=== PATIENT | female | born 1990 | race Caucasian/White ===

== ENCOUNTER 2021-07-30 22:23 | Emergency (ER) | payer OTHER, SELFPAY ==
[2021-07-30 22:27] VITALS: BP 129/88; PULSE 128; RESP 20; TEMP 36.9; O2SAT 97; BMI 33.3
[2021-07-30 22:52] LABS: Basophils Percent Auto 0.4 % (0-2); Eosinophils Absolute Auto 0.2 X10*3/uL (0.0-0.4); Eosinophils Percent Auto 2.6 % (0-4); Hematocrit 42.4 % (37.0-47.0); Hemoglobin 14.4 g/dl (12.0-16.0); Imm Gran Abs Auto 0.01 X10*3/uL (0.00-0.03); Imm Gran Pct Auto 0.1 % (0.0-0.4); Lymphocytes Absolute Auto 1.8 X10*3/uL (1.2-4.9); Lymphocytes Percent Auto 24.7 % (20-40); MANUAL DIFF FLAG NO; Mean Corpuscular Hemoglobin 30.5 pg (27.0-33.0); Mean Corpuscular Volume 89.8 fL (80.0-98.0); Monocytes Absolute Auto 0.7 X10*3/uL (0.1-1.2); Monocytes Percent Auto 9.5 % (2-11); Neutrophils Absolute Auto 4.5 x10*3/uL (2.0-8.3); Neutrophils Percent Auto 62.7 % (45-73); Platelet Count 314 X10*3/uL (160-400); Red Blood Count 4.72 X10*6/uL (4.20-5.50); Red Cell Distribution Width 12.9 % (11.0-16.0); White Blood Count 7.2 X10*3/uL (4.8-10.8)
[2021-07-30 22:53] LABS: Appearance Urine CLEAR; Color Urine YELLOW; Glucose Urine UA NEG (NEG); Leukocyte Esterase Urine NEG (NEG); Nitrite Urine NEG (NEG); Specific Gravity - Urine >= 1.030 (1.005-1.025); UACC Culture Trigger NO; Urine Blood 2+ (NEG); Urine Ketones NEG (NEG); Urine Protein TRACE MG/DL (NEG-TRACE)
[2021-07-30 22:56] LABS: UPreg QC Valid YES; Urine Pregnancy NEGATIVE (NEGATIVE)
[2021-07-30 23:04] LABS: Mucus Urine 3+ /LPF; RBC Urine 0-2 /HPF (0); Squamous Epithelial Cell Urine 2+ /LPF; WBC Urine 0-2 /HPF (0-4)
[2021-07-30 23:05] LABS: Anion Gap 12 (12-20); Blood Urea Nitrogen 15 mg/dL (9-16); Calcium 9.1 mg/dL (8.4-10.2); Carbon Dioxide 23 mmol/L (22-29); Chloride 108 mmol/L (96-108); Creatinine Clr Calc Pharmacy 107.6; Estimated Glomerular Filt Rate > 60; Glucose Random 116 mg/dL (60-115); Potassium 3.7 mmol/L (3.3-5.1); Sodium 139 mmol/L (135-145)
--- NOTE | 2021-07-30 23:15 | ED.FEMALEGU ---
HPI - Female Genitourinary General Chief complaint: Urogenital-Female Stated complaint: rash perineal area Time Seen by Provider: 07/30/21 23:15 Source: patient Mode of arrival: ambulatory Limitations: no limitations History of Present Illness HPI Narrative: Patient is a 30 year old female presenting to the emergency department today with a vaginal rash. Patient states that this rash came on all of a sudden and began to feel like it was burning. Patient denies any dizziness, lightheadedness, abdominal pain, nausea, vomiting, fever, chills, blurry vision, double vision, loss of vision, chest pain, difficulty breathing, shortness of breath, back pain, night sweats, increased urinary frequency, increased urinary urgency, blood in her urine or stool, syncope or a near syncopal episode, recent trauma or falls, bowel incontinence, bladder incontinence, bowel retention, bladder retention, or any other complaints at this time. MD elicited complaint: dysuria, possible STD and genital rash Related Data Allergies Allergy/AdvReac Type Severity Reaction Status Date / Time Seasonal Allergies Allergy Runny Nose Verified 07/30/21 22:35 codeine AdvReac Hallucinati Verified 07/30/21 22:35 ons Review of Systems Constitutional: Constitutional: Reports no additional constitutional complaints, Denies chills, Denies fever(s) and Denies night sweats Eyes: Eyes: Reports no additional eye complaints, Denies blurry vision, Denies change in vision, Denies diplopia, Denies eye discharge, Denies loss of vision and Denies eye pain ENT: Denies dizziness Cardiovascular: Cardiovascular: Reports no additional cardiovascular complaints, Denies chest pain, Denies lightheadedness, Denies Loss of Consciousness and Denies dyspnea Respiratory: Respiratory: Reports no additional respiratory complaints and Denies dyspnea Gastrointestinal: Gastrointestinal: Reports no additional gastrointestinal complaints, Denies abdominal pain, Denies melena, Denies hematochezia, Denies change in bowel habits and Denies change in stool character Genitourinary: Genitourinary: Denies hematuria, Denies urinary frequency, Reports genital lesions, Reports dysuria, Denies urinary incontinence, Denies urinary hesitancy and Denies urinary urgency Musculoskeletal: Musculoskeletal: Reports no additional musculoskeletal complaints, Denies numbness and Denies tingling Neurologic: Denies dizziness, Denies loss of vision, Denies numbness and Denies tingling Psychiatric: Psychiatric: Reports no additional psychiatric complaints Endocrine: Endocrine: Reports no additional endocrine complaints Hematologic/Lymphatic: Hematologic/Lymphatic: Reports no additional hematologic/lymphatic complaints Allergic/Immunologic: Allergic/Immunologic: Reports no additional allergic/immunologic complaints PMF Past Medical History Attestation statement: The following information was validated with the patient. Source: old records reviewed Medical History Asthma Surgical History Previous back surgery Social History Social History Advance Directives: No Patient : No Physical Exam Vital Signs: Vital Signs: Last Vital Signs Temp 98.5 F 07/30/21 22:27 Pulse 128 H 07/30/21 22:27 Resp 20 07/30/21 22:27 BP 129/88 07/30/21 22:27 Pulse Ox 97 07/30/21 22:27 BMI result Body Mass Index 33.3 Const: General: cooperative, no acute distress, alert and awake Nutritional Appearance: well nourished Orientation/consciousness: patient oriented x3 Limitations: no limitations HENMT: Head: Yes normal to inspection and Yes atraumatic Ears: hearing grossly normal bilaterally and external ears normal General nose exam: Normal external nose present, no nasal discharge noted and no epistaxis Face and sinus: Yes normal facial exam, No abrasion and No laceration Mouth: Normal oral and palatal mucosa present, no drooling and no muffled voice Eyes: General: appearance normal, both eyes and all related structures Periorbital: periorbital findings normal Eyelids: Yes eyelids normal Conjunctivae: conjunctivae normal Pupils: Equal, round and reactive pupils present EOM: EOMs intact bilaterally Neck: Neck: Yes normal visual inspection, Yes full ROM and Yes no lymphadenopathy Chest: Chest palpation & inspection: normal inspection of the chest Resp: Effort & Inspection: normal respiratory effort and able to speak in complete sentences GI: Inspection: Yes normal to inspection Skin: Lesions: lesion noted (extensively throughout the external vagina) Neuro: General: patient oriented x3 and moves all extremities Cranial nerves: Yes Equal, round and reactive pupils present Cognition (Neuro): normal cognition Motor exam (neuro): 5/5 motor strength present throughout Sensory Exam: Normal double simultaneous stimulation for sensation Coordination: [id number] test normal Extrem: General: Yes normal to inspection, Yes full ROM and Yes capillary refill normal Psych: Appearance: grossly normal Mental Status: mental status grossly normal Affect: normal affect Attitude: cooperative Thought process: Normal thought process present Thought content: Normal thought content present Insight: Good insight present (Psych) MDM - Female Genitourinary MDM Narrative Medical decision making narrative: Patient is a 30 year old female presenting to the emergency department today with an extensive external vaginal rash. Patient's physical exam showed multiple lesions to the external vagina consistent with genital herpes. Patient's blood work was unremarkable. Patient's urine showed no acute process. I explained my physical exam findings as well as all test results to the patient. I answered all questions asked by the patient. I stressed the importance of the patient taking her medication as prescribed. I stressed the importance of the patient following up with her primary care provider. I stressed the importance of the patient returning to the emergency department immediately if her symptoms were to worsen or if she were to develop any dizziness, shortness of breath, difficulty breathing, chest pain, blurry vision, loss of vision, nausea, vomiting, abdominal pain, fever, chills, back pain, or any other complaints. Patient verbalized agreement and understanding with this treatment plan and discharge. Differential Diagnosis Differential diagnosis: Likely urinary tract infection and cystitis (vaginal herpes) Medical Records Attestation: I reviewed the patient's medical records. Lab Data Attestation: I reviewed the patient's lab results. Result diagrams: 07/30/21 22:46 07/30/21 22:46 Labs: Lab Results 07/30/21 07/30/21 07/30/21 Range/Units 22:46 22:46 22:46 WBC 7.2 (4.8-10.8) X10*3/uL RBC 4.72 (4.20-5.50) X10*6/uL Hgb 14.4 (12.0-16.0) g/dl Hct 42.4 (37.0-47.0) % MCV 89.8 (80.0-98.0) fL MCH 30.5 (27.0-33.0) pg MCHC 34.0 (31.0-35.0) g/dl RDW 12.9 (11.0-16.0) % Plt Count 314 (160-400) X10*3/uL MPV 9.0 L (9.4-12.3) fL Immature Gran % (Auto) 0.1 (0.0-0.4) % Neut % (Auto) 62.7 (45-73) % Lymph % (Auto) 24.7 (20-40) % [place] % (Auto) 9.5 (2-11) % Eos % (Auto) 2.6 (0-4) % Baso % (Auto) 0.4 (0-2) % Lymph # (Auto) 1.8 (1.2-4.9) X10*3/uL [place] # (Auto) 0.7 (0.1-1.2) X10*3/uL Eos # (Auto) 0.2 (0.0-0.4) X10*3/uL Baso # (Auto) 0.0 (0.0-0.2) X10*3/uL Abs Immat Gran (auto) 0.01 (0.00-0.03) X10*3/uL Absolute Neuts (auto) 4.5 (2.0-8.3) x10*3/uL Absolute Nucleated RBC 0.000 (0.0-0.012) X10*3/uL Nucleated RBC % (auto) 0.0 (0.0-0.2) /100WBC Sodium 139 (135-145) mmol/L Potassium 3.7 (3.3-5.1) mmol/L Chloride 108 (96-108) mmol/L Carbon Dioxide 23 (22-29) mmol/L Anion Gap 12 (12-20) BUN 15 (9-16) mg/dL Creatinine 0.85 (0.5-1.4) mg/dL Estim Creat Clear Calc 107.6 Estimated GFR > 60 Random Glucose 116 H (60-115) mg/dL Calcium 9.1 (8.4-10.2) mg/dL Urine Color YELLOW Urine Appearance CLEAR Urine pH 6.0 (5.0-8.0) Ur Specific [place] >= 1.030 H (1.005-1.025) Urine Protein TRACE (NEG-TRACE) MG/DL Urine Glucose (UA) NEG (NEG) MG/DL Urine Ketones NEG (NEG) MG/DL Urine Blood 2+ H (NEG) Urine Nitrite NEG (NEG) Ur Leukocyte Esterase NEG (NEG) Urine RBC 0-2 (0) /HPF Urine WBC 0-2 (0-4) /HPF Ur Squamous Epith Cells 2+ /LPF Urine Bacteria NONE /LPF Urine Mucus 3+ /LPF Urine Test (NEGATIVE) 07/30/21 Range/Units 22:46 WBC (4.8-10.8) X10*3/uL RBC (4.20-5.50) X10*6/uL Hgb (12.0-16.0) g/dl Hct (37.0-47.0) % MCV (80.0-98.0) fL MCH (27.0-33.0) pg MCHC (31.0-35.0) g/dl RDW (11.0-16.0) % Plt Count (160-400) X10*3/uL MPV (9.4-12.3) fL Immature Gran % (Auto) (0.0-0.4) % Neut % (Auto) (45-73) % Lymph % (Auto) (20-40) % [place] % (Auto) (2-11) % Eos % (Auto) (0-4) % Baso % (Auto) (0-2) % Lymph # (Auto) (1.2-4.9) X10*3/uL [place] # (Auto) (0.1-1.2) X10*3/uL Eos # (Auto) (0.0-0.4) X10*3/uL Baso # (Auto) (0.0-0.2) X10*3/uL Abs Immat Gran (auto) (0.00-0.03) X10*3/uL Absolute Neuts (auto) (2.0-8.3) x10*3/uL Absolute Nucleated RBC (0.0-0.012) X10*3/uL Nucleated RBC % (auto) (0.0-0.2) /100WBC Sodium (135-145) mmol/L Potassium (3.3-5.1) mmol/L Chloride (96-108) mmol/L Carbon Dioxide (22-29) mmol/L Anion Gap (12-20) BUN (9-16) mg/dL Creatinine (0.5-1.4) mg/dL Estim Creat Clear Calc Estimated GFR Random Glucose (60-115) mg/dL Calcium (8.4-10.2) mg/dL Urine Color Urine Appearance Urine pH (5.0-8.0) Ur Specific [place] (1.005-1.025) Urine Protein (NEG-TRACE) MG/DL Urine Glucose (UA) (NEG) MG/DL Urine Ketones (NEG) MG/DL Urine Blood (NEG) Urine Nitrite (NEG) Ur Leukocyte Esterase (NEG) Urine RBC (0) /HPF Urine WBC (0-4) /HPF Ur Squamous Epith Cells /LPF Urine Bacteria /LPF Urine Mucus /LPF Urine Test NEGATIVE (NEGATIVE) Discharge Plan Discharge Clinical Impression: Herpetic vesicle in vagina Patient Disposition: Home, Self-Care Instructions: Genital Herpes Simplex (ED) Additional Instructions: Follow up with your primary care provider. Return to the emergency department immediately if your symptoms worsen or if you develop any dizziness, shortness of breath, difficulty breathing, chest pain, blurry vision, loss of vision, nausea, vomiting, abdominal pain, fever, chills, back pain, or any other complaints. Referrals: Girish Lomax MD [Physician] - 2 days Stand Alone Forms: Work/School Release Print Language: [place]ib[place]ian
== END 2021-07-31 00:50 | disposition home or self-care (01) ==
PROVIDERS: Emergency Provider Internal Medicine
DX: L29.0 Pruritus ani (principal); A60.04 Herpesviral vulvovaginitis; Z79.899 Other long term (current) drug therapy
CPT/HCPCS: 36415; 80048; 81001; 81025; 85025; 99283; 99284

== ENCOUNTER 2022-12-01 16:48 | Emergency (ER) | payer OTHER, SELFPAY ==
[2022-12-01 16:51] VITALS: BP 149/87; PULSE 134; RESP 18; TEMP 36.8; O2SAT 97; BMI 38.6
--- NOTE | 2022-12-01 16:53 | ED.ASTHMA ---
HPI - Asthma General Chief Complaint: Asthma Stated Complaint: sob,asthma,chest congestion Time Seen by Provider: 12/01/22 22:29 Source: patient Mode of arrival: ambulatory Limitations: no limitations History of Present Illness HPI Narrative: Patient with history of asthma does not get asthma attack very often last attack was in 05/22 ,. Patient co-worker was sick 3- 4 days ago with same symptoms. patient complaining of body aches, low-grade fever body ache malaise running nose cough mostly dry and wheeze Related Data Previous Rx's Medication Instructions Recorded albuterol sulfate 90 mcg/actuation 2 puff inhalation Q4-6H PRN 12/02/22 aerosol inhaler (ProAir HFA) shortness of breath or wheezing #8.5 grams benzonatate 200 mg capsule 200 mg PO TID PRN cough #30 caps 12/02/22 cefuroxime axetil 500 mg tablet 500 mg PO BID #20 tabs 12/02/22 prednisone 20 mg tablet 40 mg PO DAILY #10 tabs 12/02/22 Allergies Allergy/AdvReac Type Severity Reaction Status Date / Time Seasonal Allergies Allergy Runny Nose Verified 12/02/22 02:23 codeine AdvReac Hallucinati Verified 12/02/22 02:23 ons Review of Systems Review of Systems: Yes all other systems are reviewed and are negative PMFSH Past Medical History Medical History Asthma Surgical History Previous back surgery Social History Social History Use of substances other than those prescribed or required for medical reasons: Yes Advance Directives: No Advance Directives Information Provided: Yes Patient : No Physical Exam Vital Signs: Vital Signs: Last Vital Signs Temp 99.1 F 12/02/22 01:37 Pulse 127 H 12/02/22 00:00 Resp 21 H 12/02/22 00:00 BP 145/80 H 12/02/22 00:00 Pulse Ox 96 12/02/22 00:00 O2 Del Method Room Air 12/02/22 00:00 BMI result Body Mass Index 38.6 Appearance: Alert. Oriented X3. No acute distress. ENT: Pharynx normal. Oral Mucosa moist clear I noted Neck: Normal inspection. Neck supple. CVS: Normal heart rate and rhythm. Pulses normal. Respiratory: No respiratory distress. Equal air entry bilateral, bilateral wheezing Abdomen: Soft and nontender. Bowel sounds are present, no mass palpable, no CVA tenderness Skin: Skin warm and dry. Normal skin color. Normal skin turgor. Extremities: No lower extremity edema. No calf tenderness Neuro: Oriented X 3. Course Course Course Narrative: RME: 32 yold female presents to the ED for asthma exacerbation. patient states no relief with albuterol inhaler. labs, chest xray, and ekg ordered Medications Administered Discontinued Medications Generic Name Dose Route Start Last Admin Trade Name Freq PRN Reason Stop Dose Admin Acetaminophen 650 mg 12/02/22 00:12 12/02/22 00:24 Acetaminophen 325 Mg Tablet PO 12/02/22 00:13 650 mg ONCE ONE Administration Cefuroxime Axetil 500 mg 12/02/22 00:45 12/02/22 01:36 Cefuroxime Axetil 500 Mg Tablet PO 12/02/22 00:46 500 mg ONCE ONE Administration Albuterol Sulfate 5 mg/ 0 mg 12/01/22 22:38 12/02/22 02:16 Albuterol/Ipratropium 3 ml INHALE 12/01/22 22:39 Not Given ONCE ONE Dexamethasone 10 mg 12/01/22 22:38 12/01/22 23:37 Dexamethasone 2 Mg Tablet PO 12/01/22 22:39 10 mg ONCE ONE Administration Guaifenesin/Dextromethorphan 10 ml 12/02/22 00:13 12/02/22 00:24 Guaifenesin Dm 200/20/10 Ml 10 Ml Syrup PO 12/02/22 00:14 10 ml ONCE ONE Administration Medical Decision Making Medical Decision Making MDM Narrative: Patient with asthmatic bronchitis COVID/influenza/rapid strep negative chest x-ray also negative but patient has fever and increased cough will discharge patient home on Ceftin and prednisone Lab Data [facility] Lab Attestation statement: I reviewed the patient's lab results. 12/01/22 17:18 12/01/22 17:18 Labs: Lab Results 12/01/22 12/01/22 12/01/22 Range/Units 17:18 17:18 17:18 WBC 8.1 (4.8-10.8) X10*3/uL RBC 4.53 (4.20-5.50) X10*6/uL Hgb 13.8 (12.0-16.0) g/dl Hct 40.6 (37.0-47.0) % MCV 89.6 (80.0-98.0) fL MCH 30.5 (27.0-33.0) pg MCHC 34.0 (31.0-35.0) g/dl RDW 13.2 (11.0-16.0) % Plt Count 355 (160-400) X10*3/uL MPV 9.5 (9.4-12.3) fL Immature Gran % (Auto) 0.4 (0.0-0.4) % Neut % (Auto) 68.4 (45-73) % Lymph % (Auto) 18.0 L (20-40) % [place] % (Auto) 8.9 (2-11) % Eos % (Auto) 3.7 (0-4) % Baso % (Auto) 0.6 (0-2) % Lymph # (Auto) 1.5 (1.2-4.9) X10*3/uL [place] # (Auto) 0.7 (0.1-1.2) X10*3/uL Eos # (Auto) 0.3 (0.0-0.4) X10*3/uL Baso # (Auto) 0.1 (0.0-0.2) X10*3/uL Abs Immat Gran (auto) 0.03 (0.00-0.03) X10*3/uL Absolute Neuts (auto) 5.5 (2.0-8.3) x10*3/uL Absolute Nucleated RBC 0.000 (0.0-0.012) X10*3/uL Nucleated RBC % (auto) 0.0 (0.0-0.2) /100WBC Sodium 140 (135-145) mmol/L Potassium 3.2 L (3.3-5.1) mmol/L Chloride 108 (96-108) mmol/L Carbon Dioxide 22 (22-29) mmol/L Anion Gap 13 (12-20) BUN 8 L (9-16) mg/dL Creatinine 0.79 (0.5-1.4) mg/dL Estim Creat Clear Calc 118.8 Estimated GFR > 60 Random Glucose 102 (60-115) mg/dL Calcium 9.5 (8.4-10.2) mg/dL Total Bilirubin 0.3 (0.0-1.0) mg/dL AST 14 (5-31) U/L ALT 15 (0-31) U/L Alkaline Phosphatase 75 (39-117) U/L Troponin I High Sens < 2.7 (<3.5-17.0) ng/L B-Natriuretic Peptide (<100) pg/mL Total Protein 7.3 (6.5-8.0) g/dL Albumin 4.2 (3.5-5.0) g/dL COVID-19 (ANDI) (Negative) COVID-19 Clin Com Influenza Type A (MICHELLE) (Negative) Influenza Type B (MICHELLE) (Negative) Influenza A & B Note S. pyogenes GrpA MICHELLE (Negative) 12/01/22 12/01/22 12/02/22 Range/Units 17:18 23:04 00:16 WBC (4.8-10.8) X10*3/uL RBC (4.20-5.50) X10*6/uL Hgb (12.0-16.0) g/dl Hct (37.0-47.0) % MCV (80.0-98.0) fL MCH (27.0-33.0) pg MCHC (31.0-35.0) g/dl RDW (11.0-16.0) % Plt Count (160-400) X10*3/uL MPV (9.4-12.3) fL Immature Gran % (Auto) (0.0-0.4) % Neut % (Auto) (45-73) % Lymph % (Auto) (20-40) % [place] % (Auto) (2-11) % Eos % (Auto) (0-4) % Baso % (Auto) (0-2) % Lymph # (Auto) (1.2-4.9) X10*3/uL [place] # (Auto) (0.1-1.2) X10*3/uL Eos # (Auto) (0.0-0.4) X10*3/uL Baso # (Auto) (0.0-0.2) X10*3/uL Abs Immat Gran (auto) (0.00-0.03) X10*3/uL Absolute Neuts (auto) (2.0-8.3) x10*3/uL Absolute Nucleated RBC (0.0-0.012) X10*3/uL Nucleated RBC % (auto) (0.0-0.2) /100WBC Sodium (135-145) mmol/L Potassium (3.3-5.1) mmol/L Chloride (96-108) mmol/L Carbon Dioxide (22-29) mmol/L Anion Gap (12-20) BUN (9-16) mg/dL Creatinine (0.5-1.4) mg/dL Estim Creat Clear Calc Estimated GFR Random Glucose (60-115) mg/dL Calcium (8.4-10.2) mg/dL Total Bilirubin (0.0-1.0) mg/dL AST (5-31) U/L ALT (0-31) U/L Alkaline Phosphatase (39-117) U/L Troponin I High Sens (<3.5-17.0) ng/L B-Natriuretic Peptide 12 (<100) pg/mL Total Protein (6.5-8.0) g/dL Albumin (3.5-5.0) g/dL COVID-19 (ANDI) Negative (Negative) COVID-19 Clin Com See Note Influenza Type A (MICHELLE) Negative (Negative) Influenza Type B (MICHELLE) Negative (Negative) Influenza A & B Note See Note S. pyogenes GrpA MICHELLE (Negative) 12/02/22 Range/Units 00:16 WBC (4.8-10.8) X10*3/uL RBC (4.20-5.50) X10*6/uL Hgb (12.0-16.0) g/dl Hct (37.0-47.0) % MCV (80.0-98.0) fL MCH (27.0-33.0) pg MCHC (31.0-35.0) g/dl RDW (11.0-16.0) % Plt Count (160-400) X10*3/uL MPV (9.4-12.3) fL Immature Gran % (Auto) (0.0-0.4) % Neut % (Auto) (45-73) % Lymph % (Auto) (20-40) % [place] % (Auto) (2-11) % Eos % (Auto) (0-4) % Baso % (Auto) (0-2) % Lymph # (Auto) (1.2-4.9) X10*3/uL [place] # (Auto) (0.1-1.2) X10*3/uL Eos # (Auto) (0.0-0.4) X10*3/uL Baso # (Auto) (0.0-0.2) X10*3/uL Abs Immat Gran (auto) (0.00-0.03) X10*3/uL Absolute Neuts (auto) (2.0-8.3) x10*3/uL Absolute Nucleated RBC (0.0-0.012) X10*3/uL Nucleated RBC % (auto) (0.0-0.2) /100WBC Sodium (135-145) mmol/L Potassium (3.3-5.1) mmol/L Chloride (96-108) mmol/L Carbon Dioxide (22-29) mmol/L Anion Gap (12-20) BUN (9-16) mg/dL Creatinine (0.5-1.4) mg/dL Estim Creat Clear Calc Estimated GFR Random Glucose (60-115) mg/dL Calcium (8.4-10.2) mg/dL Total Bilirubin (0.0-1.0) mg/dL AST (5-31) U/L ALT (0-31) U/L Alkaline Phosphatase (39-117) U/L Troponin I High Sens (<3.5-17.0) ng/L B-Natriuretic Peptide (<100) pg/mL Total Protein (6.5-8.0) g/dL Albumin (3.5-5.0) g/dL COVID-19 (ANDI) (Negative) COVID-19 Clin Com Influenza Type A (MICHELLE) (Negative) Influenza Type B (MICHELLE) (Negative) Influenza A & B Note S. pyogenes GrpA MICHELLE Negative (Negative) Discharge Plan Discharge Clinical Impression: Asthma with acute exacerbation Patient Disposition: Home, Self-Care Instructions: Asthma (ED) Additional Instructions: Continues inhaler as prescribed Antibiotics and prednisone as prescribed Follow with PCP Prescriptions: New prednisone 20 mg tablet 40 mg PO DAILY Qty: 10 0RF albuterol sulfate [ProAir HFA] 90 mcg/actuation HFA aerosol inhaler 2 puff inhalation Q4-6H PRN (Reason: shortness of breath or wheezing) Qty: 8.5 0RF benzonatate 200 mg capsule 200 mg PO TID PRN (Reason: cough) Qty: 30 0RF cefuroxime axetil 500 mg tablet 500 mg PO BID Qty: 20 0RF Stand Alone Forms: Work/School Release Interventions: ED Discharge Assessment Last Done: 12/02/22 01:53 Discharge Date/Time: 12/02/22 01:53
[2022-12-01 22:00] VITALS: PULSE 130; RESP 23; TEMP 37.3; O2SAT 96
--- NOTE | 2022-12-01 22:14 | PC.NURSE ---
pt states she used albuterol inhaler over 30x, provider aware pt c/o foster due to coughing excessively pt tearful aox4
[2022-12-01 22:54] VITALS: PULSE 106; RESP 18; O2SAT 97
[2022-12-02] VITALS: BP 145/80; PULSE 127; RESP 21; TEMP 37.1; O2SAT 96
--- NOTE | 2022-12-02 01:01 | PC.NURSE ---
foster resolved denies cp no respiratory distress aox4
[2022-12-02 01:37] VITALS: TEMP 37.3
--- NOTE | 2022-12-02 01:54 | PC.NURSE ---
Discharge instructions given and explained to pt No apparent distress No respiratory distress Able to speak in full sentences Ambulates safely/independently All of pt's questions answered AOx4
== END 2022-12-02 01:53 | disposition home or self-care (01) ==
PROVIDERS: Emergency Provider Internal Medicine
DX: J45.901 Unspecified asthma with (acute) exacerbation (principal); R06.02 Shortness of breath; Z20.822 Contact with and (suspected) exposure to COVID-19
CPT/HCPCS: 36415; 71046; 80053; 83880; 84484; 85025; 87502; 87635; 87651; 93005; 94640; 99284; 99285; J8540

== ENCOUNTER → 2024-05-01 04:47 | Outpatient (BNV) | payer BC, SELFPAY | PROVIDERS: Emergency Provider Emergency Medicine; Visit Provider Internal Medicine | DX: R07.9 Chest pain, unspecified (principal) | CPT/HCPCS: 93010 ==

== ENCOUNTER 2024-05-01 04:55 | Emergency (ER) | payer BC, SELFPAY ==
--- NOTE | 2024-05-01 | ECG_ITS ---
Test Reason : CP Blood Pressure : / mmHG Vent. Rate : 078 BPM Atrial Rate : 078 BPM P-R Int : 124 ms QRS Dur : 078 ms QT Int : 386 ms P-R-T Axes : 043 067 027 degrees QTc Int : 440 ms Normal sinus rhythm Normal ECG No significant changes when compared with the previous EKG of 01 december 2022 Referred By: Emma Mason Electronically Signed By:ANDRES SUAZO
--- NOTE | ~2024-05-01 | US_ITS ---
EXAMINATION: US ABDOMEN LIMITED CLINICAL INFORMATION: Right upper quadrant pain. COMPARISON: None available. TECHNIQUE: Real-time imaging of the right upper quadrant abdominal viscera. FINDINGS: PANCREAS: Visualized portions are unremarkable. LIVER: The liver is normal in size. The liver contour is normal. Mildly increased hepatic parenchymal echogenicity. No focal hepatic lesion. There is no intrahepatic biliary duct dilatation seen. GALLBLADDER: Gallstones measuring up to 1.4 cm. No gallbladder wall thickening or pericholecystic free fluid to suggest acute cholecystitis. Negative sonographic Benites sign. COMMON BILE DUCT: Normal in caliber measuring 0.3 cm in diameter. RIGHT KIDNEY: No hydronephrosis. No renal calculi or focal parenchymal lesions. The kidney measures 10 cm in maximum dimension. FREE FLUID: None. US/US abdomen limited IMPRESSION: Cholelithiasis without gallbladder wall thickening or pericholecystic free fluid to suggest acute cholecystitis. Negative sonographic Benites sign. Electronically signed by: Avery Lozoya MD 05/01/2024 08:55 AM [facility]
[2024-05-01 04:59] VITALS: BP 129/85; PULSE 98; RESP 22; O2SAT 97; BMI 39.2
[2024-05-01 05:17] LABS: Basophils Percent Auto 0.6 % (0-2); Eosinophils Absolute Auto 0.2 X10*3/uL (0.0-0.4); Eosinophils Percent Auto 2.3 % (0-4); Hematocrit 41.3 % (37.0-47.0); Hemoglobin 14.4 g/dl (12.0-16.0); Imm Gran Abs Auto 0.01 X10*3/uL (0.00-0.03); Imm Gran Pct Auto 0.1 % (0.0-0.4); Lymphocytes Absolute Auto 2.4 X10*3/uL (1.2-4.9); Lymphocytes Percent Auto 34.9 % (20-40); MANUAL DIFF FLAG NO; Mean Corpuscular HGB Conc 34.9 g/dl (31.0-35.0); Mean Corpuscular Hemoglobin 30.4 pg (27.0-33.0); Mean Corpuscular Volume 87.1 fL (80.0-98.0); Mean Platelet Volume 8.9 fL (9.4-12.3); Monocytes Absolute Auto 0.8 X10*3/uL (0.1-1.2); Monocytes Percent Auto 11.2 % (2-11); Neutrophils Absolute Auto 3.5 x10*3/uL (2.0-8.3); Neutrophils Percent Auto 50.9 % (45-73); Platelet Count 333 X10*3/uL (160-400); Red Blood Count 4.74 X10*6/uL (4.20-5.50); Red Cell Distribution Width 12.8 % (11.0-16.0)
[2024-05-01 05:34] LABS: Alanine Aminotransferase 42 U/L (0-31); Albumin Level 4.1 g/dL (3.5-5.0); Alkaline Phosphatase 68 U/L (39-117); Anion Gap 12 (12-20); Aspartate Amino Transferase 30 U/L (5-31); Bilirubin Direct 0.1 mg/dL (0.0-0.5); Bilirubin Total 0.3 mg/dL (0.0-1.0); Blood Urea Nitrogen 10 mg/dL (9-16); Calcium 9.2 mg/dL (8.4-10.2); Carbon Dioxide 24 mmol/L (22-29); Chloride 108 mmol/L (96-108); Creatinine Clr Calc Pharmacy 110.3; Estimated Glomerular Filt Rate > 60; Glucose Random 101 mg/dL (60-115); Lipase 29 U/L (8-78); Potassium 4.1 mmol/L (3.3-5.1); Sodium 140 mmol/L (135-145); Total Protein 7.4 g/dL (6.5-8.0)
[2024-05-01 05:37] LABS: Troponin-I High Sensitivity < 2.7 ng/L (<3.5-17.0)
[2024-05-01 07:22] VITALS: BP 131/93; PULSE 75; RESP 18; TEMP 36.8; O2SAT 100
[2024-05-01] MEDS: Ketorolac Tromethamine 15 MG/ML VIAL IVPUSH (07:26)
--- NOTE | 2024-05-01 07:31 | ED.ABDPAIN ---
HPI - Abdominal Pain General Chief Complaint: Abdominal Pain Stated Complaint: gallstones Time Seen by Provider: 05/01/24 06:56 Source: patient Mode of arrival: ambulatory Limitations: no limitations History of Present Illness ED Provider: SARTHAK HPI narrative: 33 yo female PMH of anxiety and asthma who ate cheese quesadillas last night then around 1130pm sharp stabbing RUQ pain with burping and nausea. No vomiting, fevers, diarrhea. Her pain stopped around 630am. She notes similar episode last week that she waited out. She has no prior known gallstones and no surgeries. She feels better now but did not take any medications. She is on OCPs but pain was in abdomen not chest and no associated dyspnea reported. MD elicited complaint: abdominal pain Pertinent past history: none Onset (ago): day(s) (1130pm yesterday ) Pain Consistency: constant Location: RUQ Severity: moderate Quality: stabbing Radiation: none Migration to: no migration Exacerbating factors: eating Relieving factors: nothing Associated symptoms: nausea Related Data Previous Rx's ?Medication ?Instructions ?Recorded albuterol sulfate 90 mcg/actuation 2 puff inhalation Q4-6H PRN 12/02/22 aerosol inhaler (ProAir HFA) shortness of breath or wheezing #8.5 grams benzonatate 200 mg capsule 200 mg PO TID PRN cough #30 caps 12/02/22 cefuroxime axetil 500 mg tablet 500 mg PO BID #20 tabs 12/02/22 prednisone 20 mg tablet 40 mg (2 x 20 mg) PO DAILY #10 tabs 12/02/22 ketorolac 10 mg tablet 10 mg PO TID PRN pain 5 days #15 05/01/24 tabs ondansetron 4 mg disintegrating 4 mg PO Q8H PRN nausea and 05/01/24 tablet vomiting #20 tabs Allergies Allergy/AdvReac Type Severity Reaction Status Date / Time Seasonal Allergies Allergy Runny Nose Verified 05/01/24 05:01 codeine AdvReac Hallucinati Verified 05/01/24 05:01 ons Review of Systems Review of Systems Constitutional : No Weight loss, No Fever, No Chills ENT/Mouth : No sore throat, No Rhinorrhea Eyes: No Swelling, No Redness Cardiovascular : No Chest Pain, No SOB, NoEdema Respiratory : No Cough, No Sputum, No Wheezing Gastrointestinal : Positive Nausea, no Vomiting, no Diarrhea, positive abdominal Pain, No Hematochezia, No Melena Genitourinary : No Dysuria, No Urinary Frequency, No Hematuria, No Urgency Musculoskeletal : No joint pain, No Myalgias, No Joint Swelling Skin : No Skin Lesions, No rash Neuro : No Weakness, No Numbness, No Dizziness, No Headache All other systems reviewed and are negative. [facility]LY [facility], [facility] Past Medical History Attestation statement: The following information was validated with the patient. Source: old records reviewed Medical History Asthma Surgical History Previous back surgery Social History Social History Smoked in Last 30 Days: No Use of substances other than those prescribed or required for medical reasons: No Advance Directives: No Advance Directives Information Provided: Yes Patient : No Physical Exam ED Vital Signs: Vital Signs - 24 hr 05/01/24 04:59 05/01/24 07:22 Temperature 98.3 F Pulse Rate 98 75 Respiratory Rate 22 H 18 Blood Pressure 129/85 131/93 H Pulse Oximetry 97 100 Oxygen Delivery Method Room Air Room Air BMI result Body Mass Index 39.2 Appearance: Alert. Oriented X3. No acute distress. Eyes: Pupils equal, round and reactive to light. ENT: Pharynx normal. Neck: Normal inspection. Neck supple. CVS: Normal heart rate and rhythm. Pulses normal. Respiratory: No respiratory distress. Breath sounds normal. Abdomen: Soft and non-tender neg benites's sign Skin: Skin warm and dry. Normal skin color. Normal skin turgor. Extremities: No lower extremity edema. No calf ttp Neuro: Oriented X 3. No motor deficit. No sensory deficit. Medical Decision Making Medical Decision Making MDM Narrative: 33 yo female PMH of anxiety and asthma here with resolved RUQ pain and nausea after eating cheese quesadillas just recently had similar bout suspect biliary colic. She has no ttp low suspicion for infection. At this time toradol for inflammation and US ordered of GB to confirm biliary colic. Basic labs ordered as well. No CP/SOB not toxic doubt VTE. Differential Diagnosis Differential Diagnoses: The differential diagnosis associated with the presentation includes gastritis, GERD, biliary colic Admission/Observation Consideration of admission/observation: Escalation of care including admission/observation considered labs and US reassuring pain free stable for DC Lab Data MDM Lab Attestation statement: I reviewed the patient's lab results. 05/01/24 05:11 05/01/24 05:11 Labs: Lab Results 05/01/24 Range/Units 05:11 WBC 7.0 (4.8-10.8) X10*3/uL RBC 4.74 (4.20-5.50) X10*6/uL Hgb 14.4 (12.0-16.0) g/dl Hct 41.3 (37.0-47.0) % MCV 87.1 (80.0-98.0) fL MCH 30.4 (27.0-33.0) pg MCHC 34.9 (31.0-35.0) g/dl RDW 12.8 (11.0-16.0) % Plt Count 333 (160-400) X10*3/uL MPV 8.9 L (9.4-12.3) fL Immature Gran % (Auto) 0.1 (0.0-0.4) % Neut % (Auto) 50.9 (45-73) % Lymph % (Auto) 34.9 (20-40) % [place]estone % (Auto) 11.2 H (2-11) % Eos % (Auto) 2.3 (0-4) % Baso % (Auto) 0.6 (0-2) % Lymph # (Auto) 2.4 (1.2-4.9) X10*3/uL Limestone # (Auto) 0.8 (0.1-1.2) X10*3/uL Eos # (Auto) 0.2 (0.0-0.4) X10*3/uL Baso # (Auto) 0.0 (0.0-0.2) X10*3/uL Abs Immat Gran (auto) 0.01 (0.00-0.03) X10*3/uL Absolute Neuts (auto) 3.5 (2.0-8.3) x10*3/uL Absolute Nucleated RBC 0.000 (0.0-0.012) X10*3/uL Nucleated RBC % (auto) 0.0 (0.0-0.2) /100WBC Sodium 140 (135-145) mmol/L Potassium 4.1 (3.3-5.1) mmol/L Chloride 108 (96-108) mmol/L Carbon Dioxide 24 (22-29) mmol/L Anion Gap 12 (12-20) BUN 10 (9-16) mg/dL Creatinine 0.85 (0.5-1.4) mg/dL Estim Creat Clear Calc 110.3 Estimated GFR > 60 Random Glucose 101 (60-115) mg/dL Calcium 9.2 (8.4-10.2) mg/dL Total Bilirubin 0.3 (0.0-1.0) mg/dL Direct Bilirubin 0.1 (0.0-0.5) mg/dL AST 30 (5-31) U/L ALT 42 H (0-31) U/L Alkaline Phosphatase 68 (39-117) U/L Troponin I High Sens < 2.7 (<3.5-17.0) ng/L Total Protein 7.4 (6.5-8.0) g/dL Albumin 4.1 (3.5-5.0) g/dL Lipase 29 (8-78) U/L Independent Interpretation I performed an independent interpretation of an: Ultrasound (gallstones no infection) Radiology Impression Discussion of test interpretation with radiology: I have reviewed the radiologist's reading. External Record Review External record reviewed: Outpatient record Prescription Management I considered prescription management with: Pain Medication and Other Medications Administered Discontinued Medications Generic Name Dose Route Start Last Admin Trade Name Freq PRN Reason Stop Dose Admin Ketorolac Tromethamine 15 mg 05/01/24 07:20 05/01/24 07:26 Ketorolac Tromethamine 15 Mg/Ml Vial IVPUSH 05/01/24 07:21 15 mg ONCE ONE Administration Discharge Plan Discharge Clinical Impression: Biliary colic Patient Disposition: Home, Self-Care Instructions: Biliary Colic (ED), Low Fat Diet (ED) Additional Instructions: return for fevers, chest pain, trouble breathing, unable to eat or drink or severe pain follow up with surgery as outpatient LOW FAT DIET US/US abdomen limited IMPRESSION: Cholelithiasis without gallbladder wall thickening or pericholecystic free fluid to suggest acute cholecystitis. Negative sonographic Benites sign. Prescriptions: New ondansetron 4 mg tablet,disintegrating 4 mg PO Q8H PRN (Reason: nausea and vomiting) Qty: 20 0RF ketorolac 10 mg tablet 10 mg PO TID PRN (Reason: pain) 5 Days Qty: 15 0RF Rx Instructions: given IV toradol in department No Action prednisone 20 mg tablet 40 mg PO DAILY Qty: 10 0RF albuterol sulfate [ProAir HFA] 90 mcg/actuation HFA aerosol inhaler 2 puff inhalation Q4-6H PRN (Reason: shortness of breath or wheezing) Qty: 8.5 0RF benzonatate 200 mg capsule 200 mg PO TID PRN (Reason: cough) Qty: 30 0RF cefuroxime axetil 500 mg tablet 500 mg PO BID Qty: 20 0RF [place] [facility] [place] [facility] [place] Group] Print Language: Slovak
[2024-05-01 09:12] VITALS: BP 131/93; PULSE 75; RESP 18; TEMP 36.8; O2SAT 100
== END 2024-05-01 09:12 | disposition home or self-care (01) ==
PROVIDERS: Emergency Provider Emergency Medicine
DX: K80.20 Calculus of gallbladder without cholecystitis without obstruction (principal); R10.11 Right upper quadrant pain; R07.89 Other chest pain; Z79.899 Other long term (current) drug therapy
CPT/HCPCS: 36415; 76705; 80053; 82248; 83690; 84484; 85025; 93005; 96374; 99284; J1885

== ENCOUNTER 2024-05-10 15:17 | Outpatient (AMB) | payer BC, SELFPAY ==
--- NOTE | 2024-05-10 15:32 | MHC.OFFVIS ---
Vital Signs 05/10/24 15:45 Height 5 ft 4 in Weight 225 lb 8 oz BMI 38.7 BP 129/65 Blood Pressure Location Lt brachial Position Sitting Pulse 87 Intake Visit Reasons: Gallbladder Intake Note: Patient is seen in office for ER follow up visit, gallbladder. Pt c/o: went to ED due to abdominal pain, had one episode 3 wks prior of about 6 hrs, both times was in the middle of the night felt like heartburn, denies n/v/d/c ED/us: 05/01/24 Executive Vp Required: No Accompanied by: Family/Other Allergies Seasonal Allergies Allergy (Verified 05/10/24 15:32) Runny Nose codeine Adverse Reaction (Verified 05/10/24 15:32) Hallucinations Medication List - Last Reconciled 05/10/24 by Trevor Krueger MD albuterol sulfate 90 mcg/actuation (ProAir HFA) 2 puffs inhalation Q4-6H PRN benzonatate 200 mg PO TID PRN cefuroxime axetil 500 mg PO BID escitalopram oxalate 10 mg PO DAILY ketorolac 10 mg PO TID PRN 5 days ondansetron 4 mg PO Q8H PRN prednisone 40 mg (2 x 20 mg) PO DAILY HPI Comments Details: 33-year-old female patient presenting with complaints of abdominal pain in the right upper quadrant. She has had 2 episodes of severe pain beginning 1 month ago which lasted several hours. She had a 2nd episode on 05/02/2024 and subsequently presented to the emergency department for further evaluation when the pain was at a level 8/10. She denied nausea, vomiting, fever, chills, diarrhea, or constipation. Since this last episode she was stayed away from fatty, greasy, dairy products and has remained relatively symptom-free. Workup in the emergency department with ultrasound of the abdomen revealed a large gallstone at the neck of the gallbladder with no secondary evidence of acute cholecystitis. Her pain improved while in the emergency department and she was subsequently discharged to home. She presents today to discuss possible cholecystectomy. [facility] Medical History (Updated 05/10/24 @ 16:07 by Trevor Krueger MD) Biliary colic Asthma Surgical History Hx of right breast biopsy Previous back surgery Social History Alcohol intake: current Alcohol intake frequency: holidays/special occasions only Patient Tobacco Use Status: Never used Tobacco Review of Systems Const All systems reviewed & are unremarkable except as noted in HPI and below Physical Exam Vital Signs: Last Vital Signs Pulse 87 05/10/24 15:45 BP 129/65 05/10/24 15:45 BMI result Body Mass Index 38.7 Const General: cooperative and no acute distress Nutritional Appearance: well nourished Orientation/consciousness: patient oriented x3 Limitations: no limitations HEENT Head: Yes normocephalic and Yes atraumatic Ears: hearing grossly normal bilaterally Resp Effort & Inspection: normal respiratory effort, no audible wheezes, no cough and no respiratory distress Cardio Jugular venous distension: no JVD GI Inspection: Yes normal to inspection and No incision Palpation (GI): Soft to palpation, nontender, no guarding and not rigid Percussion: Yes normal to percussion Rectal Exam - Female: deferred Skin Other: Warm, dry, no rash Neuro General: patient oriented x3 Extrem General: Yes no clubbing, cyanosis or edema Assessment & Plan Assessment & Plan (1) Biliary colic: Code(s): K80.50 - Calculus of bile duct without cholangitis or cholecystitis without obstruction Category: Medical (2) Gallstones: Code(s): K80.20 - Calculus of gallbladder without cholecystitis without obstruction Category: Medical Plan 33-year-old female patient presenting with complaints of abdominal pain in the right upper quadrant found to have a large gallstone at the neck of the gallbladder. Examination today reveals no ongoing tenderness and a negative Benites sign. Patient's history and exam are consistent with biliary colic due to gallstones. I recommended an elective laparoscopic or possible open cholecystectomy. After discussion of the procedure, risks, and alternatives, she consents to the surgery. She will be scheduled as a short-stay surgery. Coding Level of Care Code New Pt Level 4 (63051) Diagnoses Biliary colic K80.50 Gallstones K80.20
[2024-05-10 15:45] VITALS: BP 129/65; PULSE 87; BMI 38.7
== END 2024-05-10 16:00 | disposition home or self-care (01) ==
PROVIDERS: PCP Nurse Practitioner Family; Visit Provider Surgery
DX: K80.50 Calculus of bile duct without cholangitis or cholecystitis without obstruction (principal); K80.20 Calculus of gallbladder without cholecystitis without obstruction
CPT/HCPCS: 99204

== ENCOUNTER → 2024-05-10 15:17 | Outpatient (BNVA) | payer BC, SELFPAY | PROVIDERS: PCP Nurse Practitioner Family; Visit Provider Surgery ==

== ENCOUNTER 2024-05-30 05:44 | Day surgery (SDC) | payer BC, SELFPAY ==
[2024-05-26 07:54] VITALS: BMI 38.6
[2024-05-30] VITALS (7 sets, daily range): BP systolic 124–127; BP diastolic 62–80; PULSE 73–96; RESP 14–18; TEMP 36.2–36.6; O2SAT 94–97; BMI 37.9
[2024-05-30] MEDS: Lactated Ringers 1,000 ML 100 ML IVCONT (06:45)
[2024-05-30 06:52] LABS: UPreg QC Valid YES; Urine Pregnancy NEGATIVE (NEGATIVE)
--- NOTE | 2024-05-30 07:27 | MHC.SHP ---
Pre-Procedural Eval Section A - 24 Hr Update-Section A only Date of Service: 05/30/24 The patient is an INPATIENT: No Changes since office visit: Yes Patient answered all questions; No Cold of Flu in the past 2 weeks, No New Medical Problems and No Changes in Medication The patient has been examined within 24 hours of the surgical procedure. The History & Physical has been completed within 30 days and I have reviewed it.: Yes Section B - Complete if H&P > 30 days Chief Complaint: Calculus of bile duct without cholangitis or triston Allergies: Allergies Allergy/AdvReac Type Severity Reaction Status Date / Time Seasonal Allergies Allergy Runny Nose Verified 05/30/24 06:33 codeine AdvReac Hallucinati Verified 05/30/24 06:33 ons Plan Diagnosis/Plan: Unchanged I have reviewed the history and physical and performed a pertinent physical examination on my patient. No changes have occurred unless specified. Time Spent With Patient Time: Total time managing care of this patient today ____ minutes.
--- NOTE | 2024-05-30 07:58 | HO.ANESPROP2 ---
[facility] Active Problems Active Problems: All Active Problems BRCA1 gene mutation positive (Acute) Gallstones (Acute) Biliary colic (Acute) Past Medical History Medical History BRCA1 gene mutation positive Biliary colic Asthma Functional capacity: independent ambulation Patient : No Family History Family history of problems with anesthesia: No Surgical History Surgical History Hx of right breast biopsy Previous back surgery History of Problems with Anesthesia: No Social History Social History Are you a primary career orientation teacher to a significant other at home: No Do you presently have visiting nurse or other home services: No Alcohol intake: current Alcohol intake frequency: holidays/special occasions only Patient Tobacco Use Status: Never used Tobacco Use of substances other than those prescribed or required for medical reasons: Yes Substance Use Frequency: Daily Have you been hit, kicked, punched, or otherwise hurt by someone within the past year? If so, by whom?: No Are you DNR?: No Advance Directives: No Advance Directives Information Provided: Yes Advance Directives on File: No Recently lost weight without trying: No Nutrition Risks: No Nutritional Risk Patient : No FDLMP: 05/21/24 Meds Allergies Allergy/AdvReac Type Severity Reaction Status Date / Time Seasonal Allergies Allergy Runny Nose Verified 05/30/24 06:33 codeine AdvReac Hallucinati Verified 05/30/24 06:33 ons Active Medications: Current Medications Lactated Ringer's (Lr) 1,000 mls @ 100 mls/hr IVCONT .Q10H MARY Last Admin: 05/30/24 06:45 Dose: 100 mls/hr Home Medications ?Medication ?Instructions ?Recorded ?Confirmed ?Last Taken ?Type escitalopram oxalate 10 mg tablet 10 mg PO DAILY 05/10/24 05/30/24 Unknown History albuterol sulfate 90 mcg/actuation 2 puff inhalation Q4H PRN Wheezing 05/30/24 05/30/24 Unknown History aerosol inhaler cetirizine 10 mg tablet (Zyrtec) 10 mg PO DAILY 05/30/24 05/30/24 Unknown History cholecalciferol (vitamin D3) 125 12/30/24 Unknown History mcg (5,000 unit) tablet (Vitamin D3) iron 05/30/24 05/30/24 Unknown History levonorgestrel 0.15 mg-ethinyl 1 tab PO DAILY 05/30/24 05/30/24 Unknown History estradiol 0.03 mg tablet (Altavera (28)) montelukast 10 mg tablet 10 mg PO QPM 05/30/24 05/30/24 Unknown History Exam Height,Weight and Vital Signs: Height 5 ft 4 in Weight 100.244 kg Last Vital Signs Temp 97.9 F 05/30/24 06:35 Pulse 90 05/30/24 06:35 Resp 14 05/30/24 06:35 BP 125/65 05/30/24 06:35 Pulse Ox 96 05/30/24 06:35 O2 Del Method Room Air 05/30/24 06:35 Pertinent Lab Results Pertinent Lab Results: Laboratory Tests 05/30/24 06:10 Urine Test NEGATIVE Airway Mallampati Class: II TM Dist: >3cm Neck ROM: Full Heart: RRR Lungs: CTA Assessment and Plan Assessment Anesthesia Assessment: Anesthesia Plan Discussed and Chart Reviewed Final Anesthetic Review Family History of Problems with Anesthesia: No History of Problems with Anesthesia: No NPO: Yes ASA Class: II Final Preanesthetic Review: Meds/Allgs Chart Reviewed, Consent Obtained/Reviewed and Anes Risks/Benef Reviewed Patient Risk: Intermediate Procedure Risk: Intermediate Anesthetic Plan Anesthetic Plan: GA
--- NOTE | 2024-05-30 08:36 | W.PM.OPN ---
Operative Note Operative Note Date of Service: 05/30/24 Narrative: Preoperative diagnosis: Biliary colic, cholelithiasis Postoperative diagnosis: Same Procedure: Laparoscopic cholecystectomy Surgeon: Trevor Krueger MD Day Porter: MELISSA De Jesus Anesthesia: General endotracheal Indications for procedure: 33-year-old female with complaints of right upper quadrant abdominal pain found to have a large gallstone within the neck of the gallbladder. Patient has intermittent symptoms consistent with biliary colic. Operative findings: Chronically inflamed gallbladder with adhesions to the undersurface of the gallbladder. Large gallstone within the neck of the gallbladder. Specimen: gallbladder Estimated blood loss: 5 mL Complications: None Procedure details: Patient was brought to the OR and placed in a supine position. After administering general anesthesia the patient's abdomen was prepped with ChloraPrep and draped in a sterile fashion. A surgical time-out was called the consent confirmed. Patient received preoperative antibiotics and Venodyne boots were in place. Local anesthesia consisting of 0.5% Sensorcaine without epinephrine was infiltrated in a periumbilical region. A 5 mm incision was made above the umbilicus in a transverse fashion. The Veress needle was then inserted while elevating abdominal cavity with towel clips. After positive drop test the abdomen was insufflated to a pressure of 15 mm of mercury. The Veress needle was then removed and a 5 mm trocar inserted. The camera was inserted in the abdomen explored. A 12 mm trocar was then placed in the epigastrium. Two 5 mm trocars placed in the right upper quadrant by the business services assistant. The patient was placed in reverse Trendelenburg positioning and rotated to the left. The gallbladder was grasped with the fundus and retracted cephalad by the business services assistant. The infundibulum was then grasped and retracted away from the liver bed, also by the business services assistant. The Dolphin dissected was then used by the surgeon to dissect the peritoneum off the infundibulum to reveal the junction with the cystic duct. Cystic artery was noted slightly medial and posterior to the cystic duct. After obtaining a critical view the cystic duct was doubly clipped and divided. The cystic artery was then doubly clipped and divided. The gallbladder was then dissected off the liver bed using electrocautery with an L hook. Hemostasis was assured all times using the electrocautery. When the gallbladder is completely dissected off the liver bed was placed in an Endo-Catch bag and brought out through the epigastric incision. The gallbladder was sent to pathology for further examination. The abdomen was then re-examined. The liver bed was irrigated and suctioned dry. No bleeding or bile leak could be identified. CO2 was then evacuated and all trocars removed. Fascia was closed at the epigastric incision using a [id number] 0 Polysorb suture. Skin was closed in all incisions using a subcuticular 4 0 Polysorb suture by both the surgeon and business services assistant. Sterile dressings consisting of Steri-Strips, 2 x 2 gauze, and Tegaderm were then applied. The patient tolerated the procedure well. Sponge instrument and needle counts reported as correct. The patient was transferred to PACU in stable condition.
== END 2024-05-30 10:04 | disposition home or self-care (01) ==
PROVIDERS: Anesthesiology; Visit Provider Surgery
PROC: 0FT44ZZ Resection of Gallbladder, Percutaneous Endoscopic Approach (ICD-10-PCS; CPT 47562; principal; 2024-05-30 07:30)
DX: K80.10 Calculus of gallbladder with chronic cholecystitis without obstruction (principal); K82.8 Other specified diseases of gallbladder; J45.909 Unspecified asthma, uncomplicated; Z79.52 Long term (current) use of systemic steroids; Z79.899 Other long term (current) drug therapy; Z88.5 Allergy status to narcotic agent; Z98.890 Other specified postprocedural states
CPT/HCPCS: 47562; 81025; 88304; J0131; J1100; J1885; J2003; J2250; J2405; J2704; J2795; J3010

== ENCOUNTER → 2024-05-30 05:44 | Outpatient (BNV) | payer BC, SELFPAY | PROVIDERS: Visit Provider Surgery | DX: K80.50 Calculus of bile duct without cholangitis or cholecystitis without obstruction (principal) | CPT/HCPCS: 47562 ==

== ENCOUNTER 2024-06-10 10:14 | Outpatient (AMB) | payer BC, SELFPAY ==
--- NOTE | 2024-06-10 10:15 | MHC.OFFVIS ---
Vital Signs 06/10/24 10:21 Height 5 ft 4 in Weight 222 lb 8 oz BMI 38.2 BP 123/60 Blood Pressure Location Lt brachial Position Sitting Pulse 79 Intake Visit Reasons: S/P lap triston Intake Note: Patient is seen in office for post op assessment post laparoscopic cholecystectomy. Pt c/o: denies any concerns, healing as expected surgery:05/30/24 Fractionating Still Operator Required: No Accompanied by: Family/Other Allergies Seasonal Allergies Allergy (Verified 06/10/24 10:21) Runny Nose codeine Adverse Reaction (Verified 06/10/24 10:21) Hallucinations HPI Comments Details: 33-year-old female status post laparoscopic cholecystectomy performed on 05/30/2024. Operative findings were consistent with chronic cholecystitis with a large gallstone at the neck of the gallbladder. She reports feeling improved in his able to tolerate her diet without further abdominal pain. She did have some problem with belching and gas pain but this is improved after taking Gas-X. FOR[facility]LY [facility] Medical History BRCA1 gene mutation positive Biliary colic Asthma Surgical History History of laparoscopic cholecystectomy (05/30/24) Hx of right breast biopsy Previous back surgery Social History Are you a primary home care associate to a significant other at home: No Do you presently have visiting nurse or other home services: No Alcohol intake: current Alcohol intake frequency: holidays/special occasions only Patient Tobacco Use Status: Never used Tobacco Physical Exam Const General: no acute distress GI Other: Well-healed trocar incisions without erythema or discharge. Skin Other: Warm, dry, normal color Assessment & Plan Assessment & Plan (1) Biliary colic: Code(s): K80.50 - Calculus of bile duct without cholangitis or cholecystitis without obstruction Category: Medical (2) Gallstones: Code(s): K80.20 - Calculus of gallbladder without cholecystitis without obstruction Category: Medical Plan Patient returns approximately 12 days following laparoscopic cholecystectomy. She tolerated the procedure well and her wounds are healing nicely. She may resume normal activity as of 06/13/2023. She should follow up as needed. Coding Level of Care Code Global (29368) Diagnoses Biliary colic K80.50 Gallstones K80.20
[2024-06-10 10:21] VITALS: BP 123/60; PULSE 79; BMI 38.2
== END 2024-06-10 10:36 | disposition home or self-care (01) ==
PROVIDERS: Visit Provider Surgery
DX: K80.50 Calculus of bile duct without cholangitis or cholecystitis without obstruction (principal); K80.20 Calculus of gallbladder without cholecystitis without obstruction
CPT/HCPCS: 99024

== ENCOUNTER → 2024-11-24 09:22 | Outpatient (BNV) | payer OTHER, SELFPAY | PROVIDERS: Emergency Provider Emergency Medicine; PCP Nurse Practitioner Family; Visit Provider Radiology Diagnostic Radiology | DX: S68.626A Partial traumatic transphalangeal amputation of right little finger, initial encounter (principal) | CPT/HCPCS: 73130 ==

== ENCOUNTER 2024-11-24 09:36 | Day surgery (SDC) | payer OTHER, BC, SELFPAY ==
--- NOTE | ~2024-11-24 | XR_ITS ---
EXAMINATION: XR HAND, RIGHT CLINICAL INFORMATION: wound fifth digit COMPARISON: None available. TECHNIQUE: PA, lateral, and oblique views of the right hand. FINDINGS: Partial amputation injury of the tip of the fifth digit. There may be exposed bone although no definitive tuft fracture is identified. No radiopaque foreign body is seen. Otherwise, no fracture or malalignment. Joint spaces appear preserved. Alignment is normal. XR/XR hand RT min 3V IMPRESSION: Partial amputation injury of the tip of the fifth digit. There may be exposed bone although no definitive tuft fracture is identified. No radiopaque foreign body is seen. Electronically signed by: Chad Haley MD 11/24/2024 10:28 AM EDT
[2024-11-24 09:38] VITALS: BP 128/88; PULSE 79; RESP 20; TEMP 36.2; O2SAT 98; BMI 37.4
--- NOTE | 2024-11-24 10:23 | ED.WOUNDLAC ---
HPI - Wound/Laceration General Chief Complaint: Wound/Laceration Stated Complaint: finger lac Time Seen by Provider: 11/24/24 10:23 Source: patient Mode of arrival: ambulatory Limitations: no limitations History of Present Illness ED Provider: Erika Robledo PA-C HPI narrative: 34 yo right hand dominant female presenting to the ER for a right pinky finger partial amputation. 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 She states a metal piece of the machine rib to the tip of her finger off including her fingernail. She immediately placed paper towels on the area and control the bleeding. She reports minimal pain at rest but when pressure is applied to the tip of the finger she has severe pain. She reports being anxious and nervous. She states she is up-to-date on her tetanus shot. She is able to fully flex and extend the finger Extremity Location: right: hand (5th digit) Place: work Patient tetanus UTD: Yes Context: accidental Associated symptoms: pain Treatments prior to arrival: bandage Related Data Home Medications ?Medication ?Instructions ?Recorded ?Confirmed escitalopram oxalate 10 mg tablet 10 mg PO DAILY 05/10/24 05/30/24 albuterol sulfate 90 mcg/actuation 2 puff inhalation Q4H PRN Wheezing 05/30/24 05/30/24 aerosol inhaler cetirizine 10 mg tablet (Zyrtec) 10 mg PO DAILY 05/30/24 05/30/24 cholecalciferol (vitamin D3) 125 05/30/24 mcg (5,000 unit) tablet (Vitamin D3) iron 05/30/24 05/30/24 levonorgestrel 0.15 mg-ethinyl 1 tab PO DAILY 05/30/24 05/30/24 estradiol 0.03 mg tablet (Altavera (28)) montelukast 10 mg tablet 10 mg PO QPM 05/30/24 05/30/24 Previous Rx's ?Medication ?Instructions ?Recorded albuterol sulfate 90 mcg/actuation 2 puff inhalation Q4-6H PRN 12/02/22 aerosol inhaler (ProAir HFA) shortness of breath or wheezing #8.5 grams prednisone 20 mg tablet 40 mg (2 x 20 mg) PO DAILY #10 tabs 12/02/22 oxycodone 5 mg tablet 5 mg PO Q6H PRN pain (scale score 05/30/24 7-10) #15 tabs oxycodone-acetaminophen 5 mg-325 1 tab PO Q6H PRN pain, severe #25 11/24/24 mg tablet tabs Allergies Allergy/AdvReac Type Severity Reaction Status Date / Time Seasonal Allergies Allergy Runny Nose Verified 11/24/24 09:40 codeine AdvReac Hallucinati Verified 11/24/24 09:40 ons Review of Systems Review of Systems: Yes all other systems are reviewed and are negative [facility] Past Medical History Medical History (Updated 11/24/24 @ 14:15 by Elizabeth Osborne RN) Tachycardia BRCA1 gene mutation positive Biliary colic Asthma Surgical History History of laparoscopic cholecystectomy (05/30/24) Hx of right breast biopsy Previous back surgery Social History Social History Are you a primary healthcare network pricing consultant to a significant other at home: No Do you presently have visiting nurse or other home services: No Alcohol intake: current Alcohol intake frequency: holidays/special occasions only Patient Tobacco Use Status: Never used Tobacco Physical Exam Vital Signs: Vital Signs: Last Vital Signs Temp 98.3 F 11/24/24 14:17 Pulse 65 11/24/24 16:00 Resp 20 11/24/24 16:00 BP 119/76 11/24/24 16:00 Pulse Ox 99 11/24/24 16:00 O2 Del Method Room Air 11/24/24 16:00 BMI result Body Mass Index 37.4 Appearance: Alert. Oriented X3. No acute distress. HEENT: normal inspection CVS: Normal heart rate and rhythm. Pulses normal. Respiratory: No respiratory distress. Skin: Skin warm and dry. Normal skin color. Normal skin turgor. No rashes. Extremities: right 5th digit with partial amputation of the distal portion. no visible bone. mild oozing. flexion at the DIP and PIP Neuro: Oriented X 3. grossly normal, nonfocal Course Reevaluation(s) Reevaluation #1: Dr. Pan came to evaluate the patient at the bedside. Surgical options were discussed with the patient including elective fingernail removal and closure verses trying to salvage what is left of the fingernail, this would potentially require multiple surgeries. Dr. Pan willing to try to squeeze the patient and as an add on today. Patient is in full agreement with surgical closure and preservation of whatever is realistic and easiest. Patient to be kept NPO, last p.o. intake was around 07:00. Basic labs ordered Time: 12:56 Medications Administered Discontinued Medications Generic Name Dose Route Start Last Admin Trade Name Belén PRN Reason Stop Dose Admin Acetaminophen 975 mg 11/24/24 11:17 11/24/24 11:27 Acetaminophen 325 Mg Tablet PO 11/24/24 11:18 975 mg ONCE ONE Administration Amoxicillin/Clavulanate Potassium 875 mg 11/24/24 11:52 11/24/24 12:00 Amoxicillin/Potassium Clav 875 Mg Tablet PO 11/24/24 11:53 875 mg ONCE ONE Administration Lidocaine HCl 10 ml 11/24/24 10:42 11/24/24 11:30 Lidocaine Hcl 1 % Mpf 5 Ml Vial SUBCUT 11/24/24 10:43 10 ml ONCE ONE Administration Oxycodone HCl 5 mg 11/24/24 11:17 11/24/24 11:27 Oxycodone Hcl Immed Release 5 Mg Tablet PO 11/24/24 11:18 5 mg ONCE ONE Administration Medical Decision Making Medical Decision Making MDM Narrative: 34 yo right hand dominant female presenting with distal right 5th digit partial amputation. No visible bone. X-ray done does not show easily identified fracture although this can not be completely ruled out. Case discussed with orthopedics who initially recommended closure. Expressed concern that bedside closure would be limited as there is no tissue to reapproximate and there is slight nail bed intact. Dr. Pan came to the bedside to evaluate the patient and agreed with surgical repair. Patient in agreement. Patient went to the OR this afternoon for repair. case discussed with Meera from Orthopedics, patient was successfully discharged from the PACU after her procedure today, she did not require inpatient level of care Differential Diagnosis Differential Diagnoses: The differential diagnosis associated with the presentation includes open fracture, partial amputation, avulsion Admission/Observation Consideration of admission/observation: Escalation of care including admission/observation considered Consult Healthcare Provider Management of the patient was discussed with: Floor Cleaner Tate from Orthopedics, Dr. Pan Lab Data MDM Lab Attestation statement: I reviewed the patient's lab results. no leukocytosis, mild thrombocytosis 11/24/24 13:09 11/24/24 13:29 Labs: Lab Results 11/24/24 11/24/24 11/24/24 Range/Units 13:09 13:20 13:29 WBC 10.1 (4.8-10.8) X10*3/uL RBC 4.80 (4.20-5.50) X10*6/uL Hgb 14.7 (12.0-16.0) g/dl Hct 41.8 (37.0-47.0) % MCV 87.1 (80.0-98.0) fL MCH 30.6 (27.0-33.0) pg MCHC 35.2 H (31.0-35.0) g/dl RDW 12.8 (11.0-16.0) % Plt Count 418 H D (160-400) X10*3/uL MPV 9.4 (9.4-12.3) fL Immature Gran % (Auto) 0.3 (0.0-0.4) % Neut % (Auto) 75.2 H (45-73) % Lymph % (Auto) 18.1 L (20-40) % [place] % (Auto) 4.8 (2-11) % Eos % (Auto) 1.1 (0-4) % Baso % (Auto) 0.5 (0-2) % Lymph # (Auto) 1.8 (1.2-4.9) X10*3/uL [place] # (Auto) 0.5 (0.1-1.2) X10*3/uL Eos # (Auto) 0.1 (0.0-0.4) X10*3/uL Baso # (Auto) 0.1 (0.0-0.2) X10*3/uL Abs Immat Gran (auto) 0.03 (0.00-0.03) X10*3/uL Absolute Neuts (auto) 7.6 (2.0-8.3) x10*3/uL Absolute Nucleated RBC 0.000 (0.0-0.012) X10*3/uL Nucleated RBC % (auto) 0.0 (0.0-0.2) /100WBC PT 10.9 (10.9-12.4) SEC INR 1.0 (0.9-1.1) APTT 28.4 (26.0-36.8) SEC Sodium 137 (135-145) mmol/L Potassium 4.0 (3.3-5.1) mmol/L Chloride 107 (96-108) mmol/L Carbon Dioxide 23 (22-29) mmol/L Anion Gap 11 L (12-20) BUN 8 L (9-16) mg/dL Creatinine 0.80 (0.5-1.4) mg/dL Estim Creat Clear Calc 113.1 Estimated GFR > 60 Random Glucose 89 (60-115) mg/dL Calcium 9.2 (8.4-10.2) mg/dL Magnesium 2.2 (1.6-2.6) mg/dL Urine Color Yellow Urine Appearance Clear Urine pH 6.5 (5.0-9.0) Ur Specific [place] 1.015 (1.005-1.025) Urine Protein Negative (Neg-Trace) mg/dL Urine Glucose (UA) Negative (Negative) mg/dL Urine Ketones Trace (Negative) mg/dL Urine Blood Trace H (Negative) Urine Nitrite Negative (Negative) Ur Leukocyte Esterase Moderate (2+) H (Negative) Urine RBC 0-2 (0-2) /HPF Urine WBC 6-10 (0-5) /HPF Ur Squamous Epith Cells 6-10 (0-2) /HPF Urine Bacteria 1+ (None Seen) Hyaline Casts 0-2 (0-2) /LPF Urine Test NEGATIVE (NEGATIVE) Blood Type Antibody Screen 11/24/24 Range/Units 14:02 WBC (4.8-10.8) X10*3/uL RBC (4.20-5.50) X10*6/uL Hgb (12.0-16.0) g/dl Hct (37.0-47.0) % MCV (80.0-98.0) fL MCH (27.0-33.0) pg MCHC (31.0-35.0) g/dl RDW (11.0-16.0) % Plt Count (160-400) X10*3/uL MPV (9.4-12.3) fL Immature Gran % (Auto) (0.0-0.4) % Neut % (Auto) (45-73) % Lymph % (Auto) (20-40) % [place] % (Auto) (2-11) % Eos % (Auto) (0-4) % Baso % (Auto) (0-2) % Lymph # (Auto) (1.2-4.9) X10*3/uL [place] # (Auto) (0.1-1.2) X10*3/uL Eos # (Auto) (0.0-0.4) X10*3/uL Baso # (Auto) (0.0-0.2) X10*3/uL Abs Immat Gran (auto) (0.00-0.03) X10*3/uL Absolute Neuts (auto) (2.0-8.3) x10*3/uL Absolute Nucleated RBC (0.0-0.012) X10*3/uL Nucleated RBC % (auto) (0.0-0.2) /100WBC PT (10.9-12.4) SEC INR (0.9-1.1) APTT (26.0-36.8) SEC Sodium (135-145) mmol/L Potassium (3.3-5.1) mmol/L Chloride (96-108) mmol/L Carbon Dioxide (22-29) mmol/L Anion Gap (12-20) BUN (9-16) mg/dL Creatinine (0.5-1.4) mg/dL Estim Creat Clear Calc Estimated GFR Random Glucose (60-115) mg/dL Calcium (8.4-10.2) mg/dL Magnesium (1.6-2.6) mg/dL Urine Color Urine Appearance Urine pH (5.0-9.0) Ur Specific [place] (1.005-1.025) Urine Protein (Neg-Trace) mg/dL Urine Glucose (UA) (Negative) mg/dL Urine Ketones (Negative) mg/dL Urine Blood (Negative) Urine Nitrite (Negative) Ur Leukocyte Esterase (Negative) Urine RBC (0-2) /HPF Urine WBC (0-5) /HPF Ur Squamous Epith Cells (0-2) /HPF Urine Bacteria (None Seen) Hyaline Casts (0-2) /LPF Urine Test (NEGATIVE) Blood Type A Positive Antibody Screen NEGATIVE Independent Interpretation I performed an independent interpretation of an: Plain X-Ray Interpretation: distal amputation of soft tissue, no fx Radiology Impression Discussion of test interpretation with radiology: I have reviewed the radiologist's reading. Radiologist Impression: XR/XR hand RT min 3V IMPRESSION: Partial amputation injury of the tip of the fifth digit. There may be exposed bone although no definitive tuft fracture is identified. No radiopaque foreign body is seen. Prescription Management I considered prescription management with: Pain Medication and Antibiotic Critical Care Time Critical Care Time Critical Care Time: No Discharge Plan Discharge Clinical Impression: Finger avulsion Qualifiers: Encounter type: initial encounter Qualified Code(s): S61.209A - Unspecified open wound of unspecified finger without damage to nail, initial encounter Patient Disposition: Home, Self-Care Interventions: Admission Worksheet (ED) Last Done: 11/24/24 14:03
[2024-11-24] MEDS: Acetaminophen 325 MG TABLET 975 MG PO (11:27)
[2024-11-24] MEDS: oxyCODONE HCl Immed Release 5 MG TABLET PO (11:27)
--- OUTSIDE RECORDS SUMMARY | 2024-11-24 11:28 | XMS_ITS | Encounter Summary ---
Author Organization [employer] Address [address] [place] [address] [address] [place] [address] Care Team Providers Care Physical Meteorologist Name Role Phone Marguerite Garza Unavailable Unavailable YandelMagi Unavailable Unavailable Inactive/Transferred Primary Care Provider Unava ilable Ghazala Peralta DO Primary Care Provider [phone] Inactive/Transferred Primary Care Provider Unava ilable Encounter Details Date Type Department Care Team (Late st Contact Info) Description 10/26/[address] [facility] MEDICAL [address] [place] [id number] Dorothy Gandhi FNP Social History Tobacco Use Types Packs/Day Years Used Date Smoking Tobacco: Never Smokeless Tobacco: Never Comments No Sex and Gender Information Value Date Recorded Sex Assigned at Female 07/20/2022 6:04 PM EST Legal Sex Female 5:36 PM EDT Gender Identity Female 07/20/2022 6:04 PM EST Sexual Orientation Choose not to disclose 2022 6:04 PM EST COVID-19 Exposure Response Date Recorded In the last 10 days, have yo u been in contact with someone who was confirmed or suspected to have Coronavirus/COVID-19? No / Unsure 10/12/2022 12:46 PM EDT documented as of this encounter Plan of Treatment Not on file documented as of this encounter Procedures Procedure Name Priority Date/Time Associated Diagnosis Comments HM MAMMOGRAPHY Routine 09/04/2022 documented in this encounter Results * Hm Mammography (09/04/2022) Anatomical Region Laterality Modality Other Dorothy [facility] Fin al Result documented in this encounter Visit Diagnoses Not on filedocumented in this encounter Additional Health Concerns Assessment Noted Time PHQ-9 Depression Total Score: 1 07/31/19 23 10:07 AM EST documented as of this encounter Care Teams Physical Meteorologist Relationship Specialty Start Date End Date Inactive/Transferred PCP - General 02/02/24 02/18/24 Ghazala Peralta DO [address] [place] [id number] PCP - General Family Medicine 02/19/24 06/21/24 Inactive/Transferred PCP - General 06/22/24 06/22/24 Marguerite Garza Community Health Worker 10/06/22 02/01/24 Magi Humphries Health Navigator Financial Counseling and Assistance Services 01/05/23 02/01/24 documented as of this encounter
[2024-11-24] MEDS: Lidocaine HCl 1 % MPF 5 ML VIAL 10 ML SUBCUT (11:30)
[2024-11-24] MEDS: Amoxicillin/Potassium Clav 875 MG TABLET PO (12:00)
[2024-11-24 13:17] LABS: MANUAL DIFF FLAG NO
[2024-11-24 13:24] LABS: Basophils Absolute Auto 0.1 X10*3/uL (0.0-0.2); Basophils Percent Auto 0.5 % (0-2); Eosinophils Absolute Auto 0.1 X10*3/uL (0.0-0.4); Eosinophils Percent Auto 1.1 % (0-4); Hematocrit 41.8 % (37.0-47.0); Hemoglobin 14.7 g/dl (12.0-16.0); Imm Gran Abs Auto 0.03 X10*3/uL (0.00-0.03); Imm Gran Pct Auto 0.3 % (0.0-0.4); Lymphocytes Absolute Auto 1.8 X10*3/uL (1.2-4.9); Lymphocytes Percent Auto 18.1 % (20-40); Mean Corpuscular HGB Conc 35.2 g/dl (31.0-35.0); Mean Corpuscular Hemoglobin 30.6 pg (27.0-33.0); Mean Corpuscular Volume 87.1 fL (80.0-98.0); Mean Platelet Volume 9.4 fL (9.4-12.3); Monocytes Absolute Auto 0.5 X10*3/uL (0.1-1.2); Monocytes Percent Auto 4.8 % (2-11); Neutrophils Absolute Auto 7.6 x10*3/uL (2.0-8.3); Neutrophils Percent Auto 75.2 % (45-73); Platelet Count 418 X10*3/uL (160-400); Red Cell Distribution Width 12.8 % (11.0-16.0); White Blood Count 10.1 X10*3/uL (4.8-10.8)
[2024-11-24 13:26] LABS: Partial Thromboplastin Time 28.4 SEC (26.0-36.8); Prothrombin Time 10.9 SEC (10.9-12.4)
[2024-11-24 13:30] VITALS: BP 120/62; PULSE 68; RESP 16; TEMP 36.6; O2SAT 98
[2024-11-24 13:30] LABS: Appearance Urine Clear; Color Urine Yellow; Glucose Urine UA Negative (Negative); Leukocyte Esterase Urine Moderate (2+) (Negative); Nitrite Urine Negative (Negative); PH 6.5 (5.0-9.0); Specific Gravity - Urine 1.015 (1.005-1.025); UMIC TRIGGER UACC YES; Urine Blood Trace (Negative); Urine Ketones Trace mg/dL (Negative); Urine Protein Negative (Neg-Trace)
[2024-11-24 13:32] LABS: UPreg QC Valid YES; Urine Pregnancy NEGATIVE (NEGATIVE)
[2024-11-24 13:37] LABS: Bacteria Urine 1+ (None Seen); Hyaline Casts Urine 0-2 /LPF (0-2); RBC Urine 0-2 /HPF (0-2); UACC Culture Trigger YES
--- NOTE | 2024-11-24 13:38 | PC.NURSE ---
report given to EVANGELIST Mohr in Short stay.
[2024-11-24 13:49] LABS: Anion Gap 11 (12-20); Blood Urea Nitrogen 8 mg/dL (9-16); Calcium 9.2 mg/dL (8.4-10.2); Carbon Dioxide 23 mmol/L (22-29); Chloride 107 mmol/L (96-108); Creatinine Clr Calc Pharmacy 113.1; Estimated Glomerular Filt Rate > 60; Glucose Random 89 mg/dL (60-115); Magnesium 2.2 mg/dL (1.6-2.6); Sodium 137 mmol/L (135-145)
[2024-11-24 14:17] VITALS: BP 125/70; PULSE 71; RESP 14; TEMP 36.8; O2SAT 98
--- NOTE | 2024-11-24 14:22 | PM.CNOR ---
History of Present Illness HPI Consult date: 11/24/24 Chief complaint: Finger Lac Narrative: Patient is a 34-year-old female who presents to the ED with laceration and traumatic partial amputation of right small finger Patient obtained this injury in a machine at work Patient does not report significant pain at this time PMF Past Medical History Medical History (Updated 11/24/24 @ 14:15 by Elizabeth Osborne RN) Tachycardia BRCA1 gene mutation positive Biliary colic Asthma Surgical History Surgical History History of laparoscopic cholecystectomy (05/30/24) Hx of right breast biopsy Previous back surgery Social History Social History Are you a primary career services manager to a significant other at home: No Do you presently have visiting nurse or other home services: No Alcohol intake: current Alcohol intake frequency: holidays/special occasions only Patient Tobacco Use Status: Never used Tobacco Smoked in Last 30 Days: No Use of substances other than those prescribed or required for medical reasons: Yes Substance Use Type Other:: insomnia Are you DNR?: No Advance Directives: No Advance Directives Information Provided: Yes Do you have a plan to hurt others: No Plan Patient : No : No Poor oral hygiene: No Meds Allergies Allergy/AdvReac Type Severity Reaction Status Date / Time Seasonal Allergies Allergy Runny Nose Verified 11/24/24 09:40 codeine AdvReac Hallucinati Verified 11/24/24 09:40 ons Home Medications ?Medication ?Instructions ?Recorded ?Confirmed ?Last Taken ?Type escitalopram oxalate 10 mg tablet 10 mg PO DAILY 05/10/24 05/30/24 Unknown History albuterol sulfate 90 mcg/actuation 2 puff inhalation Q4H PRN Wheezing 05/30/24 05/30/24 Unknown History aerosol inhaler cetirizine 10 mg tablet (Zyrtec) 10 mg PO DAILY 05/30/24 05/30/24 Unknown History cholecalciferol (vitamin D3) 125 05/30/24 Unknown History mcg (5,000 unit) tablet (Vitamin D3) iron 05/30/24 05/30/24 Unknown History levonorgestrel 0.15 mg-ethinyl 1 tab PO DAILY 05/30/24 05/30/24 Unknown History estradiol 0.03 mg tablet (Altavera (28)) montelukast 10 mg tablet 10 mg PO QPM 05/30/24 05/30/24 Unknown History Physical Exam Vital Signs: Vital Signs: Last Vital Signs Temp 98.3 F 11/24/24 14:17 Pulse 71 11/24/24 14:17 Resp 14 11/24/24 14:17 BP 125/70 11/24/24 14:17 Pulse Ox 98 11/24/24 14:17 O2 Del Method Room Air 11/24/24 14:17 BMI result Body Mass Index 37.4 Extrem: Other: Patient is alert, oriented, and in no acute distress. Traumatic partial amputation of the most distal aspect of the right small finger Wound clean, no evidence of debris or contamination No surrounding erythema General: No ecchymosis, erythema, or evidence of infection. Psych: Appears grossly normal Affect normal Attitude cooperative Results Labs 11/24/24 13:09 11/24/24 13:29 Labs: Abnormal lab results 11/24/24 11/24/24 11/24/24 Range/Units 13:09 13:20 13:29 MCHC 35.2 H (31.0-35.0) g/dl Plt Count 418 H D (160-400) X10*3/uL Neut % (Auto) 75.2 H (45-73) % Lymph % (Auto) 18.1 L (20-40) % Anion Gap 11 L (12-20) BUN 8 L (9-16) mg/dL Urine Blood Trace H (Negative) Ur Leukocyte Esterase Moderate (2+) H (Negative) H & H 11/24/24 Range/Units 13:09 Hgb 14.7 (12.0-16.0) g/dl Hct 41.8 (37.0-47.0) % Coagulation 11/24/24 Range/Units 13:09 INR 1.0 (0.9-1.1) All other labs normal. Assessment and Plan (1) Finger avulsion: Qualifiers: Encounter type: initial encounter Qualified Code(s): S61.209A - Unspecified open wound of unspecified finger without damage to nail, initial encounter Status: Acute Plan 1. Traumatic partial amputation of right small finger Date of injury 11/24/2024 I educated the patient about the condition. I discussed both operative and nonoperative treatment options. The patient would like to proceed with surgery. The risks and benefits of operative treatment were discussed with the patient and the patient wishes to proceed with surgery. These risks include, but are not limited to, risk of damage to blood vessels, nerves, tendons, infection, recurrence, incomplete relief of preoperative symptoms, persistent pain, possible need for further surgery, and the risks associated with regional blocks and/or anesthesia. Plan is to take the patient to the operating room at some point today, 11/24/2024 for the following procedures: 1. Right small finger amputation revision Procedures Date of Service Date of Service: 11/24/24
[2024-11-24 16:00] VITALS: BP 119/76; PULSE 65; RESP 20; O2SAT 99
--- NOTE | 2024-11-25 11:30 | P.BOP_ITS ---
Brief Operative Note Date of Service: 11/24/24 Pre-op diagnosis: Right small finger partial traumatic amputation Post-op diagnosis: same Procedure: Completion amputation right SF dital phalanx Surgeon: Gabriel Pan MD Anesthesia: local Was an Grinding Wheel Operator used for this Procedure?: No Estimated blood loss (mL): 15 Pathology: none sent Condition: stable Disposition: PACU
--- NOTE | 2024-11-25 11:32 | W.PM.OPN ---
Operative Note Operative Note Date of Service: 11/24/24 Narrative: Indications: This is a 34-year-old who sustained a traumatic amputation of the right small finger. The amputation was at the level of the germinal matrix with inadequate skin coverage. We discussed treatment options and discussed removing as little bone as possible but that complete skin coverage was per mL. She understood the possible repercussions and including revision surgery and pain and loss of function. Procedure in detail: Patient brought to the operating room placed supine on the hand table. She was prepped and draped in standard sterile fashion a time-out was called to identify proper site proper procedure proper surgeon. I began by injecting approximately 10 cc of local into the digital nerves of the small finger. The mixture was 1% lidocaine plain with ropivacaine have%. Once the finger was completely anesthetized and the patient was no longer responding to painful stimuli I began the surgery. Immediately evident was the exposed distal phalanx. This an oblique shearing fracture that left some tuft but minimal nail. In order to close this I was forced therefore to remove the nail and the germinal matrix. I then rongeured off approximately 3 mm of distal phalanx. I debulked some of the soft tissues of the finger pad and was able to bring the pad dorsal and suture this to the dorsal skin recreating a padded digit with complete skin coverage of the bone. I used 5 0 Prolene suture to reapproximate the skin edges. A finger tourniquet was used prior this to improve visualization. This was removed prior to closure and the small bleeders were cauterized. Care was taken to preserve the pad. Once I was satisfied with the closure the wound was again irrigated copiously. A well-padded soft dressing was then applied and the patient was brought to the recovery room stable condition. Patient tolerated the procedure well and there were no known complications.
== END 2024-11-24 16:49 | disposition home or self-care (01) ==
LOC: HO.ED 14:35 → HO.SSS 15:16
PROVIDERS: Physician Assistant; Emergency Provider Emergency Medicine; PCP Nurse Practitioner Family; Visit Provider Orthopaedic Surgery
PROC: (CPT 26951; principal; 2024-11-24 15:10)
DX: S68.626A Partial traumatic transphalangeal amputation of right little finger, initial encounter (principal); W31.89XA Contact with other specified machinery, initial encounter; R00.0 Tachycardia, unspecified; Z67.10 Type A blood, Rh positive; F41.9 Anxiety disorder, unspecified; M79.644 Pain in right finger(s); J45.909 Unspecified asthma, uncomplicated; Y93.89 Activity, other specified; Y92.59 Other trade areas as the place of occurrence of the external cause; Y99.0 Civilian activity done for income or pay; Z79.899 Other long term (current) drug therapy
CPT/HCPCS: 26236; 36415; 73130; 80048; 81001; 81025; 83735; 85025; 85610; 85730; 86850; 86900; 86901; 87086; 99285; J2003; J2004; J2795

== ENCOUNTER → 2024-11-24 09:59 | Outpatient (BNV) | payer OTHER, SELFPAY | PROVIDERS: Emergency Provider Emergency Medicine; PCP Nurse Practitioner Family | DX: S61.209A Unspecified open wound of unspecified finger without damage to nail, initial encounter (principal) | CPT/HCPCS: 99284 ==

== ENCOUNTER 2024-11-28 14:10 | Outpatient (AMB) | payer OTHER, SELFPAY ==
--- NOTE | 2024-11-28 15:17 | A.OFFVIS_ITS ---
Vital Signs 11/28/24 15:20 Height 5 ft 4 in Intake Visit Reasons: PO- Rev amputation of R SF Intake Note: Kinsey 34 yr old female presents today for her P/O visit for her right small finger amputation from DOS 11/25/24 wound check. States she has no pain and is doing well. Dressing removed in office. Allergies Seasonal Allergies Allergy (Verified 11/28/24 15:19) Runny Nose codeine Adverse Reaction (Verified 11/28/24 15:19) Hallucinations HPI HPI PO- Rev amputation of R SF: Details: Kinsey 34 yr old female presents today for her P/O visit for her right small finger amputation from DOS 11/25/24 wound check. States she has no pain and is doing well. Dressing removed in office. [facility] Medical History (Updated 11/24/24 @ 14:15 by Elizabeth Osborne RN) Tachycardia BRCA1 gene mutation positive Biliary colic Asthma Surgical History History of laparoscopic cholecystectomy (05/30/24) Hx of right breast biopsy Previous back surgery Social History (Updated 11/28/24 @ 15:19 by KATINA Babin) Are you a primary respiratory care instructor to a significant other at home: No Do you presently have visiting nurse or other home services: No Alcohol intake: current Alcohol intake frequency: holidays/special occasions only Patient Tobacco Use Status: Never used Tobacco Current occupational status: employed Current occupation: [employer] / rt hand Review of Systems Const All systems reviewed & are unremarkable except as noted in HPI and below Physical Exam Extrem Other: Patient is alert, oriented, and in no acute distress. Neuro: Normal sensation of the tips of all digits of the right hand at this time Vascular: Cap refill brisk Pain: Very minimal tenderness to palpation noted of the right small finger at the amputation revision site No pain with range of motion of the right hand ROM: Patient is able to make a closed fist and extend all digits of the right hand fully Skin: Well approximated and well healing amputation revision of the right small finger No lacerations or abrasions. General: No ecchymosis, erythema, or evidence of infection. Psych: Appears grossly normal Affect normal Attitude cooperative Assessment & Plan Assessment & Plan (1) Finger avulsion: Code(s): S61.209A - Unspecified open wound of unspecified finger without damage to nail, initial encounter Category: Medical Qualifiers: Encounter type: initial encounter Qualified Code(s): S61.209A - Unspecified open wound of unspecified finger without damage to nail, initial encounter Plan 1. Status post amputation revision of right small finger DOS 11/24/2024 Patient appears to be recovering well postoperatively Patient is educated about the typical recovery course Antibiotics sent to the pharmacy Patient should keep the incision site clean, dry, intact Patient is amenable to this plan Follow-up in 1 week, sooner with any acute concerns Medications: New amoxicillin-pot clavulanate 875-125 mg 1 tab PO BID 14 tabs 0RF 7 days Coding Level of Care Code New Pt Level 3 (25197) Global (57256) Diagnoses Finger avulsion S61.209A Encounter type: initial encounter
== END 2024-11-28 15:20 | disposition home or self-care (01) ==
LOC: HO.HOS 14:11
PROVIDERS: PCP Nurse Practitioner Family
DX: S68.626A Partial traumatic transphalangeal amputation of right little finger, initial encounter (principal); Z48.89 Encounter for other specified surgical aftercare
CPT/HCPCS: 99024

== ENCOUNTER → 2024-11-28 14:10 | Outpatient (BNVA) | payer OTHER, BC, SELFPAY | PROVIDERS: PCP Nurse Practitioner Family | DX: S61.202A Unspecified open wound of right middle finger without damage to nail, initial encounter (principal); Z98.890 Other specified postprocedural states | CPT/HCPCS: 99212 ==

== ENCOUNTER 2024-12-05 09:45 | Outpatient (REF) | payer OTHER, SELFPAY ==
--- NOTE | ~2024-12-05 | XR_ITS ---
EXAMINATION: XR HAND, RIGHT CLINICAL INFORMATION: M79.641 - Pain in right hand COMPARISON: November 24 2024 TECHNIQUE: PA, lateral, and oblique views of the right hand. FINDINGS: There has been increase amputations since prior examination. There is now transverse amputation across the mid portion of the distal phalanx of the fifth digit. No other abnormalities are present. XR/XR hand RT min 3V IMPRESSION: Amputation of the tuft and adjacent soft tissues of the fifth digit. Electronically signed by: Haris Posey MD 12/05/2024 03:22 PM EDT
--- OUTSIDE RECORDS SUMMARY | 2024-12-05 10:17 | XMS_ITS | Encounter Summary ---
Author Organization [employer] Address [address] [place] [address] 7 [place] [address] Care Team Providers Care Loan Examiner Name Role Phone Marguerite Garza Unavailable Unavailable YandelMagi Unavailable Unavailable Inactive/Transferred Primary Care Provider Unava ilable Ghazala Peralta DO Primary Care Provider [phone] Inactive/Transferred Primary Care Provider Unava ilable Encounter Details Date Type Department Care Team (Late st Contact Info) Description 10/26/2022 Orders Only [facility][1] MEDICAL [address] [place] [id number] Dorothy Gandhi FNP Social History Tobacco Use [...] documented as of this encounter Care Teams Loan Examiner Relationship Specialty Start Date End Date Inactive/Transferred PCP - General 02/02/24 02/18/24 Ghazala Peralta DO [address] [place] [id number] PCP - General Family Medicine 02/19/24 06/21/24 Inactive/Transferred PCP - General 06/22/24 06/22/24 Marguerite Garza Community Health Worker 10/06/22 02/01/24 Magi Humphries Health Navigator Financial Counseling and Assistance Services 01/05/23 02/01/24 documented as of this encounter
== END 2024-12-05 09:46 | disposition home or self-care (01) ==
LOC: HO.HOSX 09:45
DX: M79.641 Pain in right hand (principal); S68.61 Complete traumatic transphalangeal amputation of other and unspecified finger(s); X58.XXXA Exposure to other specified factors, initial encounter; Y93.9 Activity, unspecified; Y92.9 Unspecified place or not applicable; Y99.9 Unspecified external cause status
CPT/HCPCS: 73130

== ENCOUNTER 2024-12-05 14:59 | Outpatient (AMB) | payer BC, SELFPAY ==
--- NOTE | 2024-12-05 15:18 | A.OFFVIS_ITS ---
Vital Signs 12/05/24 15:21 Height 5 ft 4 in Intake Visit Reasons: PO- Rev amputation of R SF Intake Note: Kinsey is a 34 year old right hand dominant female who presents today for a post operative visit status post completion amputation right SF distal phalanx DOS: 11/25/[address] Gabriel Pan. States she has continues to do daily dressing, washing hands, and working on gentle ROM. Allergies Seasonal Allergies Allergy (Verified 12/05/24 15:27) Runny Nose codeine Adverse Reaction (Verified 12/05/24 15:27) Hallucinations HPI HPI PO- Rev amputation of R SF: Details: Kinsey is a 34 year old right hand dominant female who presents today for a post operative visit status post completion amputation right SF distal phalanx DOS: 11/25/[address] Gabriel Pan. States she has continues to do daily dressing, washing hands, and working on gentle ROM. Patient reports that she is very satisfied with her course so far. Reports numbness in the distal tip of the right small finger. No other acute complaints or concerns at this time. 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 Neuro: Diminished sensation of the tip of the right small finger Normal sensation of the tips of all other digits of the right hand at this time Vascular: Cap refill brisk Pain: No minimal tenderness to palpation noted of the right small finger at the a mputation revision site No pain with range of motion of the right hand ROM: Patient is able to make a closed fist and extend all digits of the right hand fully Skin: Well approximated and well healing amputation revision of the right small finger No lacerations or abrasions. General: No ecchymosis, erythema, or evidence of infection. Psych: Appears grossly normal Affect normal Attitude cooperative Assessment & Plan Assessment & Plan (1) Finger avulsion: Code(s): S61.209A - Unspecified open wound of unspecified finger without damage to nail, initial encounter Category: Medical Qualifiers: Encounter type: initial encounter Qualified Code(s): S61.209A - Unspecified open wound of unspecified finger without damage to nail, initial encounter Plan 1. Status post amputation revision of right small finger DOS 11/24/2024 Patient appears to be recovering well postoperatively Patient is educated about the typical recovery course No further antibiotic therapy needed, as there is no evidence of infection Patient should keep the incision site clean, dry, intact other than washing with soap and water gently in the sink or the shower Patient is amenable to this plan Follow-up in 2 week, sooner with any acute concerns Orders: Orders XR hand RT min 3V 12/05/24 M79.641 - Pain in right hand Coding Level of Care Code Global (03034) Diagnoses Finger avulsion S61.209A Encounter type: initial encounter
== END 2024-12-05 15:50 | disposition home or self-care (01) ==
LOC: HO.HOS 15:00
PROVIDERS: PCP Nurse Practitioner Family
DX: S61.209A Unspecified open wound of unspecified finger without damage to nail, initial encounter (principal)
CPT/HCPCS: 99024

== ENCOUNTER → 2024-12-05 15:01 | Outpatient (BNV) | payer OTHER, SELFPAY | PROVIDERS: Visit Provider Radiology Diagnostic Radiology | DX: S68.626A Partial traumatic transphalangeal amputation of right little finger, initial encounter (principal) | CPT/HCPCS: 73130 ==

== ENCOUNTER 2024-12-21 08:31 | Outpatient (AMB) | payer OTHER, SELFPAY ==
[2024-12-21 08:52] VITALS: BMI 37.4
--- NOTE | 2024-12-21 08:52 | MHC.OFFVIS ---
Vital Signs 12/21/24 08:52 Height 5 ft 4 in Weight 218 lb BMI 37.4 Intake Visit Reasons: PO - Rt SF Distal Phalanx Amputation 11/24/24 Intake Note: Kinsey is a 34 year old right hand dominant female who presents today for a post operative follow up s/p Right Small Finger Completion of amputation 11/24/24 NE. 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 At her last visit it was noted that she has completed antibiotics, she should keep the incision site clean and dry. Patient reports 2 days after last visit she was attacked by a cat, causing her to go to urgent care. At urgent care she was given sulfamethoxazole and metronidazole. She reports she is regaining sensitivity at the DIP along with numbness. Allergies Seasonal Allergies Allergy (Verified 12/21/24 09:00) Runny Nose codeine Adverse Reaction (Verified 12/21/24 09:00) Hallucinations HPI HPI PO - Rt SF Distal Phalanx Amputation 11/24/24: Details: Kinsey is a 34 year old right hand dominant female who presents today for a post operative follow up s/p Right Small Finger Completion of amputation 11/24/24 NE. 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 At her last visit it was noted that she has completed antibiotics, she should keep the incision site clean and dry. Patient reports 2 days after last visit she was attacked by a cat, causing her to go to urgent care. At urgent care she was given sulfamethoxazole and metronidazole. She reports she is regaining sensitivity at the DIP along with numbness. COUNT INCLUDES THE [facility] Medical History (Updated 11/24/24 @ 14:15 by Elizabeth Osborne RN) Tachycardia BRCA1 gene mutation positive Biliary colic Asthma Surgical History History of laparoscopic cholecystectomy (05/30/24) Hx of right breast biopsy Previous back surgery Social History Are you a primary healthcare network pricing consultant to a significant other at home: No Do you presently have visiting nurse or other home services: No Alcohol intake: current Alcohol intake frequency: holidays/special occasions only Patient Tobacco Use Status: Never used Tobacco Current occupational status: employed Current occupation: [employer] / rt hand Review of Systems Const All systems reviewed & are unremarkable except as noted in HPI and below Physical Exam Vital Signs: BMI result Body Mass Index 37.4 Extrem Other: Patient is alert, oriented, and in no acute distress. Neuro: Diminished sensation of the tip of the right small finger Normal sensation of the tips of all other digits of the right hand at this time Vascular: Cap refill brisk Pain: minimal tenderness to palpation noted of the right small finger at the amputation revision site Patient reports a feeling consistent with ?sensitivity?, but not pain No pain with range of motion of the right hand ROM: Patient is able to make a closed fist and extend all digits of the right hand fully Skin: Well approximated and well healed amputation revision of the right small finger No lacerations or abrasions. General: No ecchymosis, erythema, or evidence of infection. Psych: Appears grossly normal Affect normal Attitude cooperative Assessment & Plan Assessment & Plan (1) Finger avulsion: Code(s): S61.209A - Unspecified open wound of unspecified finger without damage to nail, initial encounter Category: Medical Qualifiers: Encounter type: initial encounter Qualified Code(s): S61.209A - Unspecified open wound of unspecified finger without damage to nail, initial encounter Plan 1. 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
== END 2024-12-21 10:16 | disposition home or self-care (01) ==
PROVIDERS: PCP Nurse Practitioner Family
DX: S61.206A Unspecified open wound of right little finger without damage to nail, initial encounter (principal)
CPT/HCPCS: 99024

== ENCOUNTER → 2024-12-21 08:31 | Outpatient (BNVA) | payer OTHER, SELFPAY | PROVIDERS: PCP Nurse Practitioner Family | DX: Z47.81 Encounter for orthopedic aftercare following surgical amputation (principal); Z89.021 Acquired absence of right finger(s) | CPT/HCPCS: 99212 ==

== ENCOUNTER 2025-01-18 08:29 | Outpatient (AMB) | payer OTHER, SELFPAY ==
[2025-01-18 08:50] VITALS: BMI 37.4
--- NOTE | 2025-01-18 08:50 | MHC.OFFVIS ---
Vital Signs 01/18/25 08:50 Height 5 ft 4 in Weight 218 lb BMI 37.4 Intake Visit Reasons: PO - Rt SF Distal Phalanx Amputation 11/24/24 Intake Note: Kinsey is a 34 year old right hand dominant female who presents today post-operatively status post completion amputation right small finger distal phalanx, DOS: 11/25/[address] Pan. At her last visit she was told she could begin occupational therapy for range of motion and desensitization of the right small finger. 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 She was started on Augmentin on 01/12/25 due to swelling and redness. Today, patient reports concern for her right small finger PIP, having swelling, redness, and discomfort during occupational therapy. Patient states her small finger curls sideways' while attempting to make a full fist. She is worried about not having her nail bed fully removed during surgery as it is snagged and pulled with activities like getting dressed. She thinks occupational therapy has been helping. She continues taking antibiotcs as prescribed. Allergies Seasonal Allergies Allergy (Verified 01/18/25 08:51) Runny Nose codeine Adverse Reaction (Verified 01/18/25 08:51) Hallucinations HPI HPI PO - Rt SF Distal Phalanx Amputation 11/24/24: Details: Kinsey is a 34 year old right hand dominant female who presents today post-operatively status post completion amputation right small finger distal phalanx, DOS: 11/25/[address] Pan. At her last visit she was told she could begin occupational therapy for range of motion and desensitization of the right small finger. 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 She was started on Augmentin on 01/12/25 due to swelling and redness. Today, patient reports concern for her right small finger PIP, having very slight swelling, redness, and discomfort during occupational therapy. Patient states her small finger curls sideways' while attempting to make a full fist. She is worried about not having her nail bed fully removed during surgery as it is snagged and pulled with activities like getting dressed. She thinks occupational therapy has been helping. She continues taking antibiotcs as prescribed. [facility] Medical History (Updated 11/24/24 @ 14:15 by Elizabeth Osborne RN) Tachycardia BRCA1 gene mutation positive Biliary colic Asthma Surgical History History of laparoscopic cholecystectomy (05/30/24) Hx of right breast biopsy Previous back surgery Social History Are you a primary personal care service provider to a significant other at home: No Do you presently have visiting nurse or other home services: No Alcohol intake: current Alcohol intake frequency: holidays/special occasions only Patient Tobacco Use Status: Never used Tobacco Current occupational status: employed Current occupation: [employer] / rt hand Review of Systems Const All systems reviewed & are unremarkable except as noted in HPI and below Physical Exam Vital Signs: BMI result Body Mass Index 37.4 Extrem Other: Patient is alert, oriented, and in no acute distress. Neuro: Diminished sensation of the tip of the right small finger Normal sensation of the tips of all other digits of the right hand at this time Vascular: Cap refill brisk Pain: minimal tenderness to palpation noted of the right small finger at the amputation revision site Patient reports a feeling consistent with ?sensitivity?, but not pain No pain with range of motion of the right hand ROM: Patient is able to make a closed fist and extend all digits of the right hand fully Skin: Well approximated and well healed amputation revision of the right small finger There does appear to be some nail growing from the area of the germinal matrix on the right small finger, with the most ulnar aspect of the nail appearing to grow into the skin No lacerations or abrasions. General: Mild redness around the distal aspect of the right small finger, does not appear consistent with infection at this time No ecchymosis Psych: Appears grossly normal Affect normal Attitude cooperative Assessment & Plan Assessment & Plan (1) Finger avulsion: Code(s): S61.209A - Unspecified open wound of unspecified finger without damage to nail, initial encounter Category: Medical Qualifiers: Encounter type: initial encounter Qualified Code(s): S61.209A - Unspecified open wound of unspecified finger without damage to nail, initial encounter Plan 1. Status post amputation revision of right small finger DOS 11/24/2024 Patient appears to be recovering well postoperatively Patient is educated about the typical recovery course At this time, I feel it is best for the patient to follow-up with Dr. 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 Woody sooner with any acute concerns Coding Level of Care Code Global (80006) Diagnoses Finger avulsion S61.209A Encounter type: initial encounter
== END 2025-01-18 09:25 | disposition home or self-care (01) ==
LOC: HO.HOS 08:29
PROVIDERS: PCP Nurse Practitioner Family
DX: S68.626A Partial traumatic transphalangeal amputation of right little finger, initial encounter (principal)
CPT/HCPCS: 99213

== ENCOUNTER → 2025-01-18 08:29 | Outpatient (BNVA) | payer OTHER, SELFPAY | PROVIDERS: PCP Nurse Practitioner Family | DX: S61.306A Unspecified open wound of right little finger with damage to nail, initial encounter (principal); W31.82XA Contact with other commercial machinery, initial encounter; Y93.89 Activity, other specified; Y92.63 Factory as the place of occurrence of the external cause; Y99.0 Civilian activity done for income or pay | CPT/HCPCS: 99212 ==

== ENCOUNTER 2025-02-01 15:03 | Outpatient (AMB) | payer OTHER, SELFPAY ==
--- NOTE | 2025-02-01 15:41 | MHC.OFFVIS ---
Vital Signs 02/01/25 15:44 Height 5 ft 5 in Weight 220 lb BMI 36.6 Intake Visit Reasons: OV- discuss R SF nail/ germinal matrix excision Intake Note: Kinsey 34 year old right hand dominant female presents today status post amputation revision of right small finger DOS 11/24/[address] Woody. Last seen with Jodee Ybarra who advise its best for the patient to follow-up with Dr. Woody for potential nail removal and nail bed excision of the right small finger discussion. 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 At today's visit she states that the pinky nail is constantly getting caught on things and pulled,which is causing irritation. Allergies Seasonal Allergies Allergy (Verified 02/01/25 15:45) Runny Nose codeine Adverse Reaction (Verified 02/01/25 15:45) Hallucinations HPI HPI OV- discuss R SF nail/ germinal matrix excision: Details: Kinsey is a 34 year old right hand dominant woman who presents to discuss a possible small finger nailbed removal. She is S/P right small finger distal phalanx level amputation by Dr. Pan, DOS: 11/25/24. The patient notes that she still has a fair amount of hypersensitivity to the tip of the small finger. However, she says that her discomfort is significantly improved compared with a month ago. She is encouraged by her progress with OT hand therapy. She would like to have a repeat order for OT. She is worried that the finger nail may catch on things and cause pain. 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 She has been out of work since her injury as her work does not have any light duty. [facility] Medical History (Updated 02/01/25 @ 16:11 by Mg Collazo) Tachycardia BRCA1 gene mutation positive Biliary colic Asthma Surgical History History of laparoscopic cholecystectomy (05/30/24) Hx of right breast biopsy Previous back surgery Social History Are you a primary field care coordinator to a significant other at home: No Do you presently have visiting nurse or other home services: No Alcohol intake: current Alcohol intake frequency: holidays/special occasions only Patient Tobacco Use Status: Never used Tobacco Current occupational status: employed Current occupation: [employer] / rt hand Review of Systems Const All systems reviewed & are unremarkable except as noted in HPI and below Physical Exam Vital Signs: BMI result Body Mass Index 36.6 Const General: cooperative, healthy appearing and no acute distress Orientation/consciousness: patient oriented x3 HEENT Head: Yes normocephalic and Yes atraumatic Eyes EOM: EOMs intact bilaterally Resp Effort & Inspection: normal respiratory effort and able to speak in complete sentences Cardio Jugular venous distension: no JVD Skin General skin exam: turgor normal Rashes: no rashes Neuro General: patient oriented x3 Extrem Other: Evaluation of Right Upper Extremity: The patient is alert, oriented, and in no acute distress Neuro: Median, Ulnar, Radial nerves motor and sensory intact . Right now she is got hypersensitivity to the tip of the small finger. Vascular: Cap refill brisk ROM: She can make a fist and extend all her digits Small finger amputation of the distal phalanx appears well healed She has a reasonable eponcyheal fold, with the naiplate emerging from under it by ~3-4mm. It is possible that once her nail grows out this may be a short but acceptable finger nail on the small finger. She is willing to wait and see Radiographs 3 views of the right hand from 12/05/24 were reviewed by me today in clinic. They show a through distal phalanx amputation of the small fingerwith satisfactory soft tissue distal to the end of the distal phalanx Psych Appearance: grossly normal Affect: normal affect Attitude: cooperative Assessment & Plan Assessment & Plan (1) Hyperesthesia: Code(s): R20.3 - Hyperesthesia Category: Medical (2) Partial traumatic amputation of right little finger through phalanx: Comment: S/P revision amp of dist phal. Code(s): S68.626A - Partial traumatic transphalangeal amputation of right little finger, initial encounter Category: Medical Plan Assessment & Plan: 1. Right small finger hypersensitivity 2. Right small finger avulsion fracture & partial amputation, S/P distal phalanx level revision amputation, also through the sterile matrix of the nail bed. DOS: 11/25/24 by NE This is a work-related injury I educated her about this condition Her amputation site is well-healed I discussed operative and non-operative treatment options While she may benefit from surgery in the future, at this time I recommend she continue with desensitization & OT hand therapy. I believe it is likely that are hypersensitivity we will continue to improve. We discussed the finger nail in the small finger. While it is shortened. We both agree that it is possible that when it grows out she may like the appearance. If she does not, we can always remove the entire nail apparatus at a later time. She is in agreement I ordered another course of OT hand therapy to work on stretching, desensitization, and normalizing function She will work on ROM exercises at home, with a focus on massaging about her fingertip to work on desensitization She will follow up in 6 weeks to see how she is doing Scribed for Monica Woody MD by Mg Collazo, medical office clerk, on 02/01/25 at 3:55 PM, EST. Orders: Orders OT Evaluation and Treatment 02/01/25 R20.3 - Hyperesthesia, S68.626A - Partial traumatic transphalangeal amputation of right little finger, initial encounter Coding Level of Care Code Est Pt Level 4 (60089) Diagnoses Hyperesthesia R20.3 Partial traumatic amputation of right little finger through phalanx S68.626A
[2025-02-01 15:44] VITALS: BMI 36.6
--- OUTSIDE RECORDS SUMMARY | 2025-02-01 17:12 | XMS_ITS | Clinical Summary ---
Author Organization [employer] Address [address] [place] [address] [address] [place] [address] Care Team Providers Care Wind Operations Supervisor Name Role Phone Unavailable Primary Care Provider Unavailabl e Allergies Active Allergy Reactions Criticality Noted Date Comments Codeine Medium 07/01/2022 Other reaction(s): confusion Guaifenesin-Codeine Headache Low 07/01/2022 Other reaction(s): Migraines Pollen Extract Low 07/01/2022 Other reaction(s): Unknown Medications cetirizine (ZyrTEC) 10 MG tablet Take 10 mg by mouth in the morning. Active triamcinolone (Kenalog) 0.1 % ointmentIndicatio ns:Dermatitis, unspecified APPLY TO THE AFFECTED AREA EXTERNALLY TWICE A DAY X7 DAYS 15 g 3 10/03/19 23 Active albuterol 108 (90 Base) MCG/ACT inhaler INHALE 2 PUFFS EVERY 4 HOURS NEEDED 18 g 5 11/28/19 23 Active Spacer/Aero-Holdi ng Chambers (Procare Spacer/Adult Mask) deviceIndications :Asthma in adult, moderate persistent, with acute exacerbation 1 Units Once daily. 1 each 1 12/05/19 23 Active ipratropium (Atrovent) 0.02 % nebulizer solution Take 2.5 mL (0.5 mg) by nebulization 4 times daily. 75 mL 11 12/05/19 23 Active montelukast (Singulair) 10 MG tablet TAKE 1 TABLET BY MOUTH EVERY DAY IN THE EVENING 90 tablet 3 12/28/19 24 Active escitalopram (Lexapro) 10 MG tabletIndications :Depression, unspecified TAKE 1 TABLET BY MOUTH EVERY DAY 90 tablet 3 03/25/20 24 Active Altavera 0.15-30 MG-MCG tabletIndications :Encounter for initial prescription of contraceptive pills TAKE 1 TABLET BY MOUTH EVERY DAY 84 tablet 4 10/15/19 25 Active Active Problems Problem Noted Date Diagnosed Date Systemic viral illness 07/21/2023 Sore throat 07/21/2023 Class 2 severe obesity due t o excess calories with serious comorbidity and body mass index (BMI) of 37.0 to 37.9 in adult 02/11/2023 Overview (03/18/2023): Continue meal planning Continue walking everyday Monitoring weight at home. Body mass index (BMI) 36.0-36.9, adult 3 Mass overlapping multiple quadrants of right kayla ast 09/29/2022 Overview (02/03/2024): Images from the original note were not included. [id number] round mass in the middle 3:00 position, homogeneous, change from previous, increased size (10 x 5 x7 mm 2020). Bx and UL ordered. 12/2023 FH: BRCA1 gene positive 07/30/2022 Mild persistent asthma without complication 06/2022 Overview (01/23/2023): Stable control PFT: 01/21/23: consistent with asthma. Mixed anxiety and depressive disorder 07/30/2022 Overview (03/18/2023): Feeling well controlled on current dose of Lexapro 10mg. Mild improvement since starting Wellbutrin Less fatigued. Improved appetite control. BRCA1-associated protein-1 tumor predisposition syndrome 06/01/2015 Overview (01/08/2024): Annual MRI of breast needed w/ and without gadolinium (still waiting to have this scheduled) Annual Mammogram needed (getting this done today 01/22) Clinical breast exam every 6-12 months Lifetime risk of breast cancer 50-70% Lifetime risk of ovarian cancer 30-40% (Recommended for women who have completed childbearing and are over the age of 35-40 b/l salpingo-oophrectomy) High risk of ovarian cancer 06/01/2015 Overview (09/11/2022): BRCA 1 gene At high risk for breast cancer 06/01/2015 Overview (01/29/2024): Images from the original note were not included. BRCA 1 gene Resolved Problems Problem Noted Date Diagnosed Date Resolved Date Genetic susceptibility to ot her malignant neoplasm 07/30/2022 09/11/2022 Overview (09/11/2022): Overdue for mammogram and MRI of the breast - working with referrals to ensure that authorization is in place. Encounters Date Type Department Care Team Description 12/22/2024 Refill [facility] [address] [place] [id number] Ghazala Peralta DO from Last 3 Months Immunizations Immunization Administration Dates Next Due DTP 12/09/1995, 2,06/09/1991,04/13,01/05/1991 HPV 9-Valent 07/21/2007,02/25/2007,01/25/2007 Hep B, Adolescent or Pediatric 05/13/1996,1995,01/06/1995 Hib (PRP-T) 02/21/1992, 2,04/13/1991,01/05 IPV 04/13/1991,01/05/1991 Influenza, Split (incl. stephen fied surface antigen) 04/09/2012 MMR 12/09/1995,02/21/1992 Meningococcal MCV4P [id number] 07/21/2007,12/26/19 07 Polio, Unspecified 12/09/1995,05/09/1992 TD (adult), 2 Lf tetanus tox oid, preservative free, adsorbed 06/15/2018,03/10/2001 Tdap 12/25/2006 Varicella 07/21/2007,06/06/1998 Family History Medical History Relation Name Comments Breast cancer Mother Age 51 seasonal allergies Mother anger issues Sister seasonal allergies Sister Relation Name Status Comments Mother Sister Social History Tobacco Use Types Packs/Day Years Used Date Smoking Tobacco: Never Smokeless Tobacco: Never Tobacco Cessation:Counseling Given: Not Answered Alcohol Use Standard Drinks/Week Comments Yes 0 (1 standard drink = 0.6 oz pur e alcohol) Depression Answer Date Recorded Patient Health Questionnaire-9 Score 2 11/27/2023 Patient Health Questionnaire-9 Score 2 11/27/2023 Last PHQ-9: Questionnaire Data 1 0 11/27/2023 Housing Stability Answer Date Recorded What is your housing situation today? I have jessica granados 11/27/[address] you li ve. Do you have problems with any of the following? None of the above 11/27/2023 Food Insecurity Answer Date Recorded Within the past 12 months, y ou worried that your food would run out before you got money to buy more: Never True 11/27/2023 Within the past 12 months,th e food you bought just didn't last and you didn't have enough money to get more: Never True Transportation Answer Date Recorded In the past 12 months, has l ack of transportation kept you from medical appts, meetings, work or from getting things needed for daily living? No 11/27/2023 Utilities Answer Date Recorded In the past 12 months, has t he electric, gas, oil or water company threatened to shut off services in your home? No 11/27/2023 Depression Answer Date Recorded Patient Health Questionnaire-2 Score 0 11/27/2023 Internet Access Answer Date Recorded Internet Access Q1 No 01/29/2024 Internet Access Q2 Not on file 01/29/2024 Comments Unknown Sex and Gender Information Value Date Recorded Sex Assigned at Female 07/20/2022 6:04 PM EST Legal Sex Female 5:36 PM EDT Gender Identity Female 07/20/2022 6:04 PM EST Sexual Orientation Choose not to disclose 2022 6:04 PM EST Last Filed Vital Signs Vital Sign Reading Time Taken Comments Blood Pressure 116/73 01/08/2024 9:15 AM EDT Pulse 106 01/08/2024 9:15 AM EDT Temperature 36.9 C (98.5 F) 01/08/2024 9:15 AM EDT Respiratory Rate 16 11/30/2023 4:18 PM EDT Oxygen Saturation 98% 11/30/2023 4:18 PM EDT Inhaled Oxygen Concentration - - Weight 102 kg (224 lb 12.8 oz) 01/08/2024 9:15 A M EDT Height 165.7 cm (5' 5.25 ) 11/30/2023 4:18 PM ED T Body Mass Index 37.12 11/30/2023 4:18 PM EDT Plan of Treatment Health Maintenance Due Date Last Done Comments HIV Screening 1990 Lipid Panel 1990 Disability Screening 1990 Alcohol/Substance Use Screening 2002 Family Planning (PISQ) 2005 Hepatitis C Screening 2008 Pneumococcal Vaccine: Pediatrics (0 to 5 Years) and At-Risk Patients (6 to 49) Years (1 of 2 - PCV) 2009 Mammography BRCA Positive 11/07/20232022, 09/04/2022, 03/22/2021 COVID-19 Vaccine ( - 2023- season) 2024 Depression Screening 11/26/2024 11/27/2023, 11/27/19 24 SDOH Screening 11/26/2024 11/27/2023 Tobacco Screening 11/29/2024 11/30/2023 Influenza Vaccine (#1) 2025 04/09/2012 Pap Smear 01/07/2027 01/08/2024, 01/2024, 03/13/2021 DTaP/Tdap/Td Vaccines (8 - Td or Tdap) 06/15/2028 06/15/2018, 12/25/2006, 03/10/2001, Additional history exists Cervical Cancer Screening 01/07/2029 HPV/Cotest 01/07/2029 01/08/2024 Zoster Vaccines (1 of 2) 2040 RSV Patients and Patients Aged 60 years or older (1 - 1-dose 75+ series) 2065 HIB Vaccines Completed 02/21/1992, 01/1992, 04/13/1991, Additional history exists IPV Vaccines Completed 12/09/1995, 01/1992, 04/13/1991, Additional history exists Hepatitis B Vaccines Completed 05/13/1996, 12/09/1995, 01/06/1995 HPV Vaccines Completed 07/21/2007, 01/31, 01/25/2007 Meningococcal Vaccine Completed 07/21/2007, 007 Hepatitis A Vaccines Aged Out No long er eligible based on patient's age to complete this topic Meningococcal B Vaccine Aged Out No l onger eligible based on patient's age to complete this topic RSV under 20 months Aged Out No longe r eligible based on patient's age to complete this topic Rotavirus Vaccines Aged Out No longer eligible based on patient's age to complete this topic Procedures Procedure Name Priority Date/Time Associated Diagnosis Comments IMAGE GUIDED PAP, APTIMA HPV W/REFLEX TO HPV GENOTYPE 16 Routine 01/08/2024 9:57 AM EDT GYNECOLOGIC PAP TEST-AGE BASED GUIDELINE CERVICAL CANCER Routine 01/08/2024 9:57 AM EDT Encounter for gynecological examination without abnormal finding HM MAMMOGRAPHY Routine 11/06/2022 from Last 3 Months or Most Recently Relevant to Health Maintenance Results * Age Guideline for Cervical Cancer and STDs (Aptima??) [id number] (01/08/2024 9:57 AM EDT) Age Guideline ACOG Testing 30-65 [facility] 1 ThinPrep vial (Cervical cells) 01/08/2024 9:57 AM EDT 01/08/2024 Narrative [facility] 1 - 01/18/2024 2:05 PM EDT Performed at: [facility] [address], [address], [place], [place] [id number] Chamber Worker: Fabio Day MD, Phone: [phone] Specimen Comment: Source.............Cervix Specimen Comment: LMP / Prev Treat...WHQ=[id number] Specimen Comment: No. of containers..01 ThinPrep Vial us Dorothy Gandhi SITECORE DEVELOPER LAB CYTOLOGY ORDERABLE S Final Result [facility] 1 * (ABNORMAL) Image Guided Pap, Aptima HPV w/Reflex to HPV Genotypes 16 and 18,45 (01/08/2024 9:57 AM EDT) Diagnosis (A) [facility] 2 Comment: EPITHELIAL CELL ABNORMALITY. LOW GRADE SQUAMOUS INTRAEPITHELIAL LESION (LSIL). Adequacy: [facility] 2 Comment: Satisfactory for evaluation. Endocervical and/or squamous metaplastic cells (endocervical component) are present. Clinician provided ICD-10: [facility] 1 Comment:Z01.419 Performed by: [facility] 1 Comment:Jose Martin Vera, Cyto technologist (ASCP) Electronically signed by [facility] 2 Comment:Anusha Fernandez MD, Pathologist Cytology Comment . [facility] 2 Pathologist Provided ICD-10: [facility] 2 Comment:R87.612 Note: [facility] 1 Comment: The Pap smear is a screening test designed to aid in the detection of premalignant and malignant conditions of the uterine cervix. It is not a diagnostic procedure and should not be used as the sole means of detecting cervical cancer. Both false-positive and false-negative reports do occur. Test Methodology: [facility] 1 Comment: This liquid based ThinPrep(R) pap test was screened with the use of an image guided system. HPV Aptima Negative Negative [facility] 3 Comment: This nucleic acid amplification test detects fourteen high-risk HPV types (16,18,31,33,35,39,45,51,52,56,58,59,66,68) without differentiation. HPV Genotype Reflex [facility] 2 Comment:Criteria not met, HP V Genotype not performed. 01/08/2024 9:57 AM EDT 01/08/2024 Narrative [facility] 2 - 01/18/2024 2:05 PM EDT Performed at: 02 - [address] [id number] Chamber Worker: Fabio Day MD, Phone: [phone] Performed at: 01 - [facility] [place] [address], [address], [place], [place] [id number] Chamber Worker: Fabio Day MD, Phone: [phone] Performed at: 03 - [facility] [address], [address], [place], [place] [id number] Chamber Worker: Fabio Day MD, Phone: [phone] us Dorothy Gandhi SITECORE DEVELOPER LAB CYTOLOGY ORDERABLE S Final Result [facility] 2 [facility] 3 * Hm Mammography (11/06/2022) Anatomical Region Laterality Modality Other Deann Martinez PA-C HEALTH MAINTENANCE Final Re sult from Last 3 Months or Most Recently Relevant to Health Maintenance Insurance [facility] [place] [place] [address] FEDERAL [facility] FEDERAL
--- OUTSIDE RECORDS SUMMARY | 2025-02-01 17:12 | XMS_ITS | Encounter Summary ---
Author Organization [employer] Address [address] [place] [address] [place] [address] Care Team Providers Care Hygiene Teacher Name Role Phone Unavailable Primary Care Provider Unavailabl e Reason for Visit * Reason Comments Med Refill Encounter Details Date Type Department Care Team (Late st Contact Info) Description 12/22/2024 Refill [place] [facility] [address] [place] [address] Ghazala Peralta DO [address] [place] [address] Social History Tobacco Use Types Packs/Day Years Used Date Smoking Tobacco: Never Smokeless Tobacco: Never Alcohol Use Standard Drinks/Week Comments Yes 0 [...] not to disclose 2022 6:04 PM EST documented as of this encounter Miscellaneous Notes * Telephone Encounter - GREY Neil - 12/23/2024 9:26 AM EDT KUN 01/08/24 Procedure Visit MFS No future medical appts scheduled at this time documented in this encounter Plan of Treatment Not on file documented as of this encounter Visit Diagnoses Not on filedocumented in this encounter Additional Health Concerns Assessment Noted Time PHQ-9 Depression Total Score: 2 11/27/19 5:57 PM EDT documented as of this encounter
--- OUTSIDE RECORDS SUMMARY | 2025-02-01 17:12 | XMS_ITS | Encounter Summary ---
Author Organization [employer] Address [address] [place] [address] [address] [place] [address] Care Team Providers Care Dredge Pump Operator Name Role Phone Marguerite Garza Unavailable Unavailable YandelMagi Unavailable Unavailable Inactive/Transferred Primary Care Provider Unava ilable Ghazala Peralta DO Primary Care Provider [phone] Inactive/Transferred Primary Care Provider Unava ilable Encounter Details Date Type Department Care Team (Late st Contact Info) Description 10/26/2022 Orders Only [facility] MED[facility] [address] [place] [id number] Dorothy Gandhi FNP Social History Tobacco Use [...] documented as of this encounter Care Teams Dredge Pump Operator Relationship Specialty Start Date End Date Inactive/Transferred PCP - General 02/02/24 02/18/24 Ghazala Peralta DO [address] [place] [address] PCP - General Family Medicine 02/19/24 06/21/24 Inactive/Transferred PCP - General 06/22/24 06/22/24 Marguerite Garza Community Health Worker 10/06/22 02/01/24 Magi Humphries Health Navigator Financial Counseling and Assistance Services 01/05/23 02/01/24 documented as of this encounter
--- OUTSIDE RECORDS SUMMARY | 2025-02-01 17:12 | XMS_ITS | Clinical Summary ---
Author Organization [facility] Address [address] [place] [address] Phone Care Team Providers Care Handkerchief Presser Name Role Phone Dorothy Gandhi Primary Care Provider Encounters Date Type Department Care Team Description 01/23/2025 7:15 AM EDT - 01/23/2025 11:59 PM EDT Hospital [facility] [address] [id number] Genetic susceptibility to malignant neoplasm of breast Discharge Disposition: Home or Self Care from Last 3 Months Surgical History Surgery Date Site/Laterality Comments STEREOTACTIC CORE BIOPSY 11/07/2022 Right Fibroadenoma Medical History Medical History Date Comments BRCA1 gene mutation positive Family History Medical History Relation Name Comments Breast cancer Mother Relation Name Status Comments Mother Social History Tobacco Use Types Packs/Day Years Used Date Smoking Tobacco: Never Assessed Comments No Sex and Gender Information Value Date Recorded Sex Assigned at Not on file Legal Sex Female 1:16 AM EST Gender Identity Not on file Sexual Orientation Not on file Obstetrics History Last Filed Vital Signs Vital Sign Reading Time Taken Comments Blood Pressure - - Pulse - - Temperature - - Respiratory Rate - - Oxygen Saturation - - Inhaled Oxygen Concentration - - Weight 99.8 kg (220 lb) 01/23/2025 7:19 AM EDT Height 162.6 cm (5' 4 ) 01/23/2025 7:19 AM EDT Body Mass Index 37.76 01/23/2025 7:19 AM EDT Plan of Treatment Health Maintenance Due Date Last Done Comments Pneumococcal Vaccine: Pediatrics (0 to 5 Years) and At-Risk Patients (6 to 49 Years) (1 of 2 - PCV) 2009 HIV Screening 05/04/2022 Hepatitis C Screening 05/04/2022 Social Influencers of Health Screening 05/04/2022 Depression Screening 06/01/2024 COVID-19 Vaccine ( season) 2025 Influenza Vaccine (#1) 2025 04/09/2012 DTaP,Tdap,and Td Vaccines (9 - Td or Tdap) 06/15/2028 06/15/2018, 12/25/2006, 03/10/2001, Additional history exists Cervical Cancer Screening: HPV 01/07/2029 01/08/2024 HIB Vaccines Completed 02/21/1992, 01/1992, 04/13/1991, Additional history exists IPV Vaccines Completed 12/09/1995, 01/1992, 04/13/1991, Additional history exists MMR Vaccines Completed 12/09/1995, 02/21/1992 Hepatitis B Vaccines Completed 05/13/1996, 12/09/1995, 01/06/1995 HPV Vaccines Completed 07/21/2007, 01/31, 01/25/2007 Meningococcal ACWY Vaccine Completed 07/21/2007, Varicella Vaccines Completed 07/21/2007, 06/06/1998 Hepatitis A Vaccines Aged Out No long er eligible based on patient's age to complete this topic Meningococcal B Vaccine Aged Out No l onger eligible based on patient's age to complete this topic RSV Immunization Patients Under 20 months Aged Out No longer eligible based on patient's age to complete this topic Procedures Procedure Name Priority Date/Time Associated Diagnosis Comments MG MAMMO DIGITAL SCREENING W SHUKRI BILAT Routine 01/23/2025 7:29 AM EDT Genetic susceptibility to malignant neoplasm of breast from Last 3 Months Results * MG Mammo Digital Screening w Shukri bilat (01/23/2025 7:29 AM EDT) Anatomical Region Laterality Modality Breast Bilateral Mammography 01/23/2025 7:52 AM EDT Impressions 01/23/2025 7:59 AM EDT No mammographic evidence of malignancy. No suspicious interval change. A negative mammogram in the presence of a clinically suspicious palpable abnormality does not preclude the possibility of malignancy or alter the indications for biopsy. The patient appears to be undergoing high risk screening including early institution of screening mammography and high risk screening MRI. ASSESSMENT: BI-RADS 1: NEGATIVE RECOMMENDATION(S): 1: Routine screening mammogram BILATERAL in 1 year. [facility] [address], [address] -------- FINAL REPORT -------- Dictated By: Baldev Villareal Dictated Date: 01/23/2025 07:52 ET Assigned Physician: Baldev Villareal Reviewed and Electronically Signed By: Baldev Villareal Signed Date: 01/23/2025 07:59 ET Workstation ID: [id number] Transcribed By: Self Edit Transcribed Date: 01/23/2025 07:52 ET Narrative 01/23/2025 7:59 AM EDT EXAM: SCREENING MAMMOGRAPHY, BILATERAL HISTORY: SCREENING. Mother diagnosed with breast cancer age 52. COMPARISON: 01/08/24, 11/06/22, 09/04/22, 03/22/21 TECHNIQUE: Synthesized CC and MLO projections of each breast. Tomosynthesis of each breast in the CC and MLO projections. ADDITIONAL IMAGING: None Computer-aided detection was employed with the [employer] AI 3-D. TISSUE DENSITY: There are scattered areas of fibroglandular density. (BI-RADS category B) FINDINGS: RIGHT BREAST: No suspicious mass. No suspicious calcification. No distortion. No change in the region of a biopsy site marker. No additional suspicious right breast findings LEFT BREAST: No suspicious mass. No suspicious calcification. No distortion. No additional suspicious left breast findings Procedure Note Baldev Villareal MD - 01/23/2025 EXAM: SCREENING MAMMOGRAPHY, BILATERAL HISTORY: SCREENING. Mother diagnosed with breast cancer age 52. COMPARISON: 01/08/24, 11/06/22, 09/04/22, 03/22/21 TECHNIQUE: Synthesized CC and MLO projections of each breast.Tomosynthesis of each breast in the CC and MLO projections. ADDITIONAL IMAGING: None Computer-aided detection was employed with the [employer] 3-D. TISSUE DENSITY: There are scattered areas of fibroglandular density.(BI-RADS category B) FINDINGS: RIGHT BREAST: No suspicious mass. No suspicious calcification. No distortion. Nochange in the region of a biopsy site marker. No additional suspiciousright breast findings LEFT BREAST: No suspicious mass. No suspicious calcification. No distortion. Noadditional suspicious left breast findings IMPRESSION: No mammographic evidence of malignancy. No suspicious interval change. A negative mammogram in the presence of a clinically suspicious palpableabnormality does not preclude the possibility of malignancy or alter theindications for biopsy. The patient appears to be undergoing high risk screening including earlyinstitution of screening mammography and high risk screening MRI. ASSESSMENT: BI-RADS 1: NEGATIVE RECOMMENDATION(S): 1: Routine screening mammogram BILATERAL in 1 year. [facility] location[facility] [address], [address] -------- FINAL REPORT -------- Dictated By: Baldev Villareal Dictated Date: 01/23/2025 07:52 ET Assigned Physician: Baldev Villareal Reviewed and Electronically Signed By: Baldev Villareal Signed Date: 01/23/2025 07:59 ET Workstation ID: [id number] Transcribed By: Self Edit Transcribed Date: 01/23/2025 07:52 ET Dorothy Gandhi PRODUCTION SUPERVISOR TRAINEE IMG BI PROCEDURES Ginny l Result from Last 3 Months Insurance [facility] Advance Directives Documents on File Type Date Recorded Patient Airplane Cabin Attendant Expl anation Health Care Decision (hx) 03/02/2020 AD FAROOQ DIRECTIVE Health Care Decision (hx) 03/02/2020 AD FAROOQ DIRECTIVE Health Care Decision (hx) 03/02/2020 AD FAROOQ DIRECTIVE Health Care Decision (hx) 03/02/2020 AD FAROOQ DIRECTIVE Health Care Decision (hx) 03/02/2020 AD FAROOQ DIRECTIVE Health Care Decision (hx) 03/02/2020 AD FAROOQ DIRECTIVE Health Care Decision (hx) 03/02/2020 AD FAROOQ DIRECTIVE Health Care Decision (hx) 03/02/2020 AD FAROOQ DIRECTIVE Health Care Decision (hx) 03/02/2020 AD FAROOQ DIRECTIVE Health Care Decision (hx) 03/02/2020 AD FAROOQ DIRECTIVE Health Care Decision (hx) 03/02/2020 AD FAROOQ DIRECTIVE Care Teams Handkerchief Presser Relationship Specialty Start Date End Date Dorothy Gandhi FNP [facility] [place] [address] PCP - General Nurse Practitioner 01/23/25
--- OUTSIDE RECORDS SUMMARY | 2025-02-01 17:12 | XMS_ITS | Encounter Summary ---
Author Organization [employer] Address [address] [place] [address] 7 [place] [address] Care Team Providers Care Manager Sourcing Name Role Phone Marguerite Garza Unavailable Unavailable YandelMagi matthew Unavailable Unavailable Inactive/Transferred Primary Care Provider Unava Ghazala Delvalle DO Primary Care Provider [phone] Inactive/Transferred Primary Care Provider Unainna hummel Encounter Details Date Type Department Care Team (Late st Contact Info) Description 01/27/2024 Orders Only David [facility] [address] [place] [address] Dorothy Gandhi FNP BRCA1-associated protein-1 tumor predisposition syndrome; At high risk for breast cancer Social History Tobacco Use Types Packs/Day Years [...] PM EST documented as of this encounter Plan of Treatment Not on file documented as of this encounter Procedures Procedure Name Priority Date/Time Associated Diagnosis Comments MRI BREAST SCREENING BILATERAL W WO CONTRAST Routine 01/08/2024 BRCA1-associated protein-1 tumor predisposition syndrome At high risk for breast cancer documented in this encounter Results * MRI BREAST SCREENING BILATERAL W WO CONTRAST (01/08/2024) Anatomical Region Laterality Modality Magnetic Resonan ce Result [facility] Dorothy WISEP IMG MRI PROCEDURES Fin al Result documented in this encounter Visit Diagnoses Diagnosis BRCA1-associated protein-1 tumor predisposition syndrome At high risk for breast cancer documented in this encounter Additional Health Concerns Assessment Noted Time PHQ-9 Depression Total Score: 2 11/27/19 5:57 PM EDT documented as of this encounter Care Teams Manager Sourcing Relationship Specialty Start Date End Date Inactive/Transferred PCP - General 02/02/24 02/18/24 Ghazala Peralta DO [address] [place] [address] PCP - General Family Medicine 02/19/24 06/21/24 Inactive/Transferred PCP - General 06/22/24 06/22/24 Marguerite Garza Community Health Worker 10/06/22 02/01/24 Magi Humphries Health Navigator Financial Counseling and Assistance Services 01/05/23 02/01/24 documented as of this encounter
--- OUTSIDE RECORDS SUMMARY | 2025-02-01 17:12 | XMS_ITS | Encounter Summary ---
Author Organization [employer] Address [address] [place] [address] [place] [address] Care Team Providers Care Foster Care Social Worker Name Role Phone Marguerite Garza Unavailable Unavailable Magi Humphries Unavailable Unavailable Inactive/Transferred Primary Care Provider Unava ilable Ghazala Peralta DO Primary Care Provider [phone] Inactive/Transferred Primary Care Provider Unava ilable Encounter Details Date Type Department Care Team (Latest Contact Info) Description 06/04/2020 Abstract [facility] CONVERSIONS Dental, Provider, DDS Social History Tobacco Use Types Packs/Day Years Used Date Smoking Tobacco: Never Assessed Comments Unknown Sex and Gender Information Value [...] Diagnoses Not on filedocumented in this encounter Care Teams Foster Care Social Worker Relationship Specialty Start Date End Date Inactive/Transferred PCP - General 02/02/24 02/18/24 Ghazala Peralta DO [address] [place] [address] PCP - General Family Medicine 02/19/24 06/21/24 Inactive/Transferred PCP - General 06/22/24 06/22/24 Marguerite Garza Community Health Worker 10/06/22 02/01/24 Magi Humphries Health Navigator Financial Counseling and Assistance Services 01/05/23 02/01/24 documented as of this encounter
--- OUTSIDE RECORDS SUMMARY | 2025-02-01 17:12 | XMS_ITS | Encounter Summary ---
Author Organization [employer] Address [address] [place] [address] 7 [place] [address] Care Team Providers Care Keno Dealer Name Role Phone Marguerite Garza Unavailable Unavailable YandelMagi Unavailable Unavailable Inactive/Transferred Primary Care Provider Unava ilable Ghazala Peralta DO Primary Care Provider [phone] Inactive/Transferred Primary Care Provider Unava ilable Encounter Details Date Type Department Care Team (Late st Contact Info) Description 11/09/2022 Orders Only [facility] MEDICAL [address] [place] [address] Deann Martinez PA-C Social History Tobacco Use Types Packs/Day Years [...] Procedure Name Priority Date/Time Associated Diagnosis Comments MAMMOGRAPHY Routine 11/06/2022 documented in this encounter Results * Hm Mammography (11/06/2022) Anatomical Region Laterality Modality Other us Deann Martinez PA-C HEALTH MAINTENANCE Final Re sult documented in this encounter Visit Diagnoses Not on filedocumented in this encounter Additional Health Concerns Assessment Noted Time PHQ-9 Depression Total Score: 1 07/31/19 23 10:07 AM EST documented as of this encounter Care Teams Keno Dealer Relationship Specialty Start Date End Date Inactive/Transferred PCP - General 02/02/24 02/18/24 Ghazala Peralta DO [address] [place] [address] PCP - General Family Medicine 02/19/24 06/21/24 Inactive/Transferred PCP - General 06/22/24 06/22/24 Marguertie Garza Community Health Worker 10/06/22 02/01/24 Magi Humphries Health Navigator Financial Counseling and Assistance Services 01/05/23 02/01/24 documented as of this encounter
== END 2025-02-01 16:14 | disposition home or self-care (01) ==
LOC: HO.HOS 15:04
PROVIDERS: PCP Nurse Practitioner Family; Visit Provider Orthopaedic Surgery
DX: R20.3 Hyperesthesia (principal); S68.626A Partial traumatic transphalangeal amputation of right little finger, initial encounter
CPT/HCPCS: 99024

== ENCOUNTER → 2025-02-01 15:03 | Outpatient (BNVA) | payer OTHER, SELFPAY | PROVIDERS: PCP Nurse Practitioner Family; Visit Provider Orthopaedic Surgery | DX: S68.626A Partial traumatic transphalangeal amputation of right little finger, initial encounter (principal); R20.3 Hyperesthesia; X58.XXXA Exposure to other specified factors, initial encounter; Y93.89 Activity, other specified; Y92.9 Unspecified place or not applicable; Y99.0 Civilian activity done for income or pay | CPT/HCPCS: 99212 ==

== ENCOUNTER 2025-02-28 09:16 | Outpatient (RCR) | payer OTHER, BC, SELFPAY ==
--- NOTE | 2024-12-30 09:59 | MHC.OT.EP ---
[address] [phone] Occupational Therapy Plan of Care Patient Name: Kinsey Williamson Date of Evaluation: 12/30/24 Diagnosis: Pain Location: distal tip of SF Pain Score: 8 Pain Scale Used: Numeric (0 - 10) Aggravating Factors: Alleviating Factors: ibuprofen Assessment: Pt is a 34 yr old R hand dominant female who injured her R SF while at work when she got the distal tip of her digit caught in a machine. [place] [facility] to [place]o. where she had her distal phalanx amputated. Pt presents today w/ sensitivity to the distal tip of her digit, light edema, decreased ROM , and strength of her SF. Pt would benefit from skilled OT therapy to address these deficits and RPLOF. Frequency and Duration: The patient will be seen 2xs a week for 6 weeks Short Term Goals: PT WILL REPORT 2/10 PAIN W/ ACTIVITY PT WILL HAVE KUMAR OF 140 PT WILL BE COMPLIANT W/ HER HEP & SCAR CARE Group Home Goals: PT WILL REPORT DECREASED SENSITIVITY IN THE DISTAL TIP OF HER SF PT WILL HAVE 65 LBS OF R HAND MAKE UP EDITOR STRENGTH PT WILL RTW ; SAFELY AND W/OUT MODIFICATIONS Treatment Plan: Therapeutic Exercise Therapeutic Activity Home Exercise Program Splinting Neuro Re-ed Patient Education Desensitization/Sensory Re-ed Edema Control Ultrasound NMES Iontophoresis Paraffin Fluidotherapy MHP Cold Packs Joint Mobilization Soft Tissue Mobilization Kinesiotaping Electronically Signed By: Gali Portillo OTR/L Please Sign and return to therapist. Thank you once again for your referral.
--- NOTE | 2025-02-28 09:57 | MHC.OT.DC ---
[facility] Office [address] [facility] 2[address] [facility] [phone] F: [phone] F: [phone] Occupational Therapy Discharge Note Patient Name: Kinsey Williamson Provider: Tate Bermudez Diagnosis: Date of Surgery: Date of Evaluation: 12/28/24 Date of Discharge: Treatments to Date: 16 Cancellations to Date: No Shows to Date: Discharge Status: Discharge Summary: Pt has met her therapy goals and is eager to RTW we discussed today RTW w/ modifications and pt will speak to the MD ; 8090* 65 KUMAR: 235 02/28 R hand staff psychiatrist: 65lbs L hand staff psychiatrist: 60 lbs DASH 0% Electronically Signed By: Gali Portillo OTR/L Reviewed/agree with student documentation: Therapist: Please Sign and return to therapist, thank you for your referral.
== END 2025-02-28 09:57 | disposition home or self-care (01) ==
LOC: HO.OT 09:16
PROVIDERS: PCP Nurse Practitioner Family
DX: S61.206D Unspecified open wound of right little finger without damage to nail, subsequent encounter (principal)
CPT/HCPCS: 97110; 97112; 97140; 97166; 97535

== ENCOUNTER 2025-03-14 08:25 | Outpatient (AMB) | payer OTHER, SELFPAY ==
--- NOTE | 2025-03-14 08:31 | A.OFFVIS_ITS ---
Vital Signs 03/14/25 08:32 Height 5 ft 5 in Weight 220 lb BMI 36.6 Intake Visit Reasons: OV- ROM check Intake Note: Kinsey 34 yr old female who is right hand dominant, presents today for her follow up visit for her Right small finger avulsion fracture & partial amputation, S/P distal phalanx level revision amputation, DOS: 11/25/24 by CORINNA. This is a work-related injury. At her last visit she was advise to continue with desensitization & OT hand therapy. Today patient states her hypersensitivity has improve and has been discharged from O.T early. She still has sensitivity but its not as bad as it was in initially. Patient work at a [employer] and does a lot of repetitive motion, she was last given a work note to remain out of work until her follow up visit. Allergies Seasonal Allergies Allergy (Verified 03/14/25 08:40) Runny Nose codeine Adverse Reaction (Verified 03/14/25 08:40) Hallucinations HPI HPI OV- ROM check: Details: Kinsey is a 34 year old right hand dominant woman who presents today for a dhidz-wg-kaulxb check and to see how her finger nail is growing in.. She is S/P right small finger distal phalanx level amputation by Dr. Pan, DOS: 11/25/24. She says she is doing well and her hypersensitivity has significantly improved. She has completed her second course of OT hand therapy and is happy with her progress. Her finger nail is still growing in, but she thinks there is a good chance that she is going to like the appearance. 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 She would like to discuss her RTW status, she has been out of work since her injury [facility] Medical History (Updated 02/01/25 @ 16:11 by Mg Collazo) Tachycardia BRCA1 gene mutation positive Biliary colic Asthma Surgical History History of laparoscopic cholecystectomy (05/30/24) Hx of right breast biopsy Previous back surgery Social History Are you a primary family day care worker to a significant other at home: No Do you presently have visiting nurse or other home services: No Alcohol intake: current Alcohol intake frequency: holidays/special occasions only Patient Tobacco Use Status: Never used Tobacco Current occupational status: employed Current occupation: [employer] / rt hand Review of Systems Const All systems reviewed & are unremarkable except as noted in HPI and below Physical Exam Vital Signs: BMI result Body Mass Index 36.6 Const General: no acute distress and alert Orientation/consciousness: patient oriented x3 Neuro General: patient oriented x3 Extrem Other: Evaluation of Right Upper Extremity: The patient is alert, oriented, and in no acute distress Neuro: Median, Ulnar, Radial nerves motor and sensory intact. Much improved hypersensitivity to the tip of the small finger. Vascular: Cap refill brisk ROM: She can make a fist and extend all her digits Small finger amputation, her wound is well healed. Her nail is growing in well. She would like to wait and see how it appears after it is all grown in, before deciding if she wants to keep it or not. She thinks that there is a good chance that she will like it. Radiographs 3 views of the right hand from 12/05/24 were reviewed by me today in clinic. They show a through distal phalanx amputation of the small fingerwith satisfactory soft tissue distal to the end of the distal phalanx Psych Appearance: grossly normal Affect: normal affect Attitude: cooperative Assessment & Plan Assessment & Plan (1) Hyperesthesia: Code(s): R20.3 - Hyperesthesia Category: Medical (2) Partial traumatic amputation of right little finger through phalanx: Comment: S/P revision amp of dist phal. Code(s): S68.626A - Partial traumatic transphalangeal amputation of right little finger, initial encounter Category: Medical Plan Assessment & Plan: 1. Right small finger hypersensitivity 2. Right small finger avulsion fracture & partial amputation, S/P distal phalanx level revision amputation, also through the sterile matrix of the nail bed. DOS: 11/25/24 by NE This is a work-related injury I educated her about this condition Her amputation site is well-healed and her hypersensitivity moved. We discussed the finger nail in the small finger. She thinks that this is a good chance that when it grows out she may like the appearance. If she does not, we can always remove the entire nail apparatus at a later time. She will continue to perform her exercises at home She was given a note for work to return on full duty, without restrictions, effective 03/20/25 She will follow up prn Scribed for Monica Woody MD by Mg Collazo, medical billing coordinator, on 03/14/25 at 9:00 AM, EST. Coding Level of Care Code Est Pt Level 3 (19138) Diagnoses Hyperesthesia R20.3 Partial traumatic amputation of right little finger through phalanx S68.626A
[2025-03-14 08:32] VITALS: BMI 36.6
--- OUTSIDE RECORDS SUMMARY | 2025-03-14 08:45 | XMS_ITS | Encounter Summary ---
Author Organization [employer] Address [address] [place] [address] 7 [place] [address] Care Team Providers Care Detective Precinct Name Role Phone Marguerite Garza Unavailable Unavailable YandelMagi Unavailable Unavailable Inactive/Transferred Primary Care Provider Unava ilable Ghazala Peralta DO Primary Care Provider [phone] Inactive/Transferred Primary Care Provider Unava ilable Encounter Details Date Type Department Care Team (Late st Contact Info) Description 11/09/[address] [facility] MEDICAL [address] [place] [address] Deann Martinez PA-C Social History Tobacco Use [...] documented as of this encounter Care Teams Detective Precinct Relationship Specialty Start Date End Date Inactive/Transferred PCP - General 02/02/24 02/18/24 Ghazala Peralta DO [address] [place] [address] PCP - General Family Medicine 02/19/24 06/21/24 Inactive/Transferred PCP - General 06/22/24 06/22/24 Marguerite Garza Community Health Worker 10/06/22 02/01/24 Magi Humphries Health Navigator Financial Counseling and Assistance Services 01/05/23 02/01/24 documented as of this encounter
--- OUTSIDE RECORDS SUMMARY | 2025-03-14 08:45 | XMS_ITS | Encounter Summary ---
Author Organization [employer] Address [address] [place] [address] 7 [place] [address] Care Team Providers Care Cement And Concrete Plant Worker Name Role Phone Marguerite Garza Unavailable Unavailable YandelMagi Unavailable Unavailable Inactive/Transferred Primary Care Provider Unava ilable Ghazala Peralta DO Primary Care Provider [phone] Inactive/Transferred Primary Care Provider Unava ilable Encounter Details Date Type Department Care Team (Late st Contact Info) Description 10/26/[address] [facility] MEDICAL [address] [place] [address] Dorothy Gandhi FNP Social History Tobacco Use [...] documented as of this encounter Care Teams Cement And Concrete Plant Worker Relationship Specialty Start Date End Date Inactive/Transferred PCP - General 02/02/24 02/18/24 Ghazala Peralta DO [address] [place] [address] PCP - General Family Medicine 02/19/24 06/21/24 Inactive/Transferred PCP - General 06/22/24 06/22/24 Marguerite Garza Community Health Worker 10/06/22 02/01/24 Magi Humphries Health Navigator Financial Counseling and Assistance Services 01/05/23 02/01/24 documented as of this encounter
--- OUTSIDE RECORDS SUMMARY | 2025-03-14 08:45 | XMS_ITS | Clinical Summary ---
Author Organization [facility] Address [address] [place] [address] Phone Care Team Providers Care Stewarding Supervisor Name Role Phone Dorothy Gandhi Primary Care Provider Encounters Date Type Department Care Team Description 01/23/2025 7:15 AM EDT - 01/23/2025 11:59 PM EDT Hospital Encounter [facility] at [address] [address] Genetic susceptibility to malignant neoplasm [...] exists Cervical Cancer Screening: HPV 01/07/2029 01/08/2024 RSV Immunization Adult Patients (1 - 1-dose 75+ series) 2065 HIB [...] year. Mammography location: [facility] at [address], [address] -------- FINAL REPORT -------- Dictated By: Baldev Villareal Dictated Date: 01/23/2025 07:52 ET Assigned Physician: Baldev Villareal Reviewed and Electronically Signed By: Baldev Villareal Signed Date: 01/23/2025 07:59 ET Workstation ID: [id number] Transcribed By: Self Edit Transcribed Date: 01/23/2025 07:52 ET Narrative 01/23/2025 7:59 AM EDT EXAM: SCREENING MAMMOGRAPHY, BILATERAL HISTORY: SCREENING. Mother diagnosed with breast cancer age 52. COMPARISON: 01/08/24, 11/06/22, 09/04/22, 03/22/21 TECHNIQUE: Synthesized CC and MLO projections of each breast. Tomosynthesis of each breast in the CC and MLO projections. ADDITIONAL IMAGING: None Computer-aided detection was employed with the Lyn[employer]it for Google Glass AI 3-D. TISSUE DENSITY: There are scattered [...] None Computer-aided detection was employed with the iCAD ProFound AI 3-D. TISSUE DENSITY: There are scattered [...] year. Mammography location: [facility] at [address], [address] -------- FINAL REPORT -------- Dictated By: Baldev Villareal Dictated Date: 01/23/2025 07:52 ET Assigned Physician: Baldev Villareal Reviewed and Electronically Signed By: Baldev Villareal Signed Date: 01/23/2025 07:59 ET Workstation ID: [id number] Transcribed By: Self Edit Transcribed Date: 01/23/2025 07:52 ET Dorothy Gandhi WATCH CASE POLISHER IMG BI PROCEDURES Ginny l Result from Last 3 Months Insurance [facility] Advance Directives Documents on File Type Date Recorded Patient Teletypist Expl anation Health Care Decision (hx) 03/02/2020 [...] (hx) 03/02/2020 AD FAROOQ DIRECTIVE Care Teams Stewarding Supervisor Relationship Specialty Start Date End Date Dorothy Gandhi FNP [address] [place] [address] PCP - General Nurse Practitioner 01/23/25
--- OUTSIDE RECORDS SUMMARY | 2025-03-14 08:46 | XMS_ITS | Encounter Summary ---
Author Organization [employer] Address [address] [place] [address] [place] [address] Care Team Providers Care Marine Resource Economist Name Role Phone Unavailable Primary Care Provider Unavailabl e Reason for Visit * Reason Comments Med Refill Encounter Details Date Type Department Care Team (Late st Contact Info) Description 12/22/2024 Refill [facility] [address] [place] [address] Ghazala Peralta DO [address] [place] [address] Social History Tobacco Use Types Packs/Day Years [...]
--- OUTSIDE RECORDS SUMMARY | 2025-03-14 08:46 | XMS_ITS | Encounter Summary ---
Author Organization [employer] Address [address] [place] [address] 7 [place] [address] Care Team Providers Care Puff Ironer Name Role Phone Marguerite Garza Unavailable Unavailable YandelMagi matthew Unavailable Unavailable Inactive/Transferred Primary Care Provider Unava Ghazala Delvalle DO Primary Care Provider [phone] Inactive/Transferred Primary Care Provider Unainna hummel Encounter Details Date Type Department Care Team (Late st Contact Info) Description 01/27/2024 Orders Only David [facility] [address] [place] [address] Dorothy Gandhi FNP BRCA1-associated protein-1 tumor predisposition [...] Region Laterality Modality Magnetic Resonan ce Result [facility] Dorothy WISEP IMG MRI PROCEDURES Fin al Result documented in this encounter Visit Diagnoses Diagnosis BRCA1-associated protein-1 tumor predisposition syndrome At high risk for breast cancer documented in this encounter Additional Health Concerns Assessment Noted Time PHQ-9 Depression Total Score: 2 11/27/19 5:57 PM EDT documented as of this encounter Care Teams Puff Ironer Relationship Specialty Start Date End Date Inactive/Transferred PCP - General 02/02/24 02/18/24 Ghazala Peralta DO [address] [place] [address] PCP - General Family Medicine 02/19/24 06/21/24 Inactive/Transferred PCP - General 06/22/24 06/22/24 Marguerite Garza Community Health Worker 10/06/22 02/01/24 Magi Humphries Health Navigator Financial Counseling and Assistance Services 01/05/23 02/01/24 documented as of this encounter
--- OUTSIDE RECORDS SUMMARY | 2025-03-14 08:46 | XMS_ITS | Clinical Summary ---
Author Organization [employer] Address [address] [place] [address] 7t [place] [address] Care Team Providers Care Wearing Apparel Shaker Name Role Phone Unavailable Primary Care Provider [...] from the original note were not included. [id number] round mass in the middle 3:00 position, [...] Type Department Care Team Description 12/22/2024 Refill [facility] MEDICAL [address] [place] [address] Ghazala Peralta DO from Last 3 Months [...] 2009 Mammography BRCA Positive 11/07/20232022, 09/04/2022, 03/22/2021 Depression Screening 11/26/2024 11/27/2023, 11/27/19 24 SDOH Screening 11/26/2024 11/27/2023 Tobacco Screening 11/29/2024 11/30/2023 COVID-19 Vaccine ( season) 2025 Influenza Vaccine (#1) 2025 04/09/2012 Pap Smear [...] Guideline for Cervical Cancer and STDs (Aptima??) [id number] (01/08/2024 9:57 AM EDT) Age Guideline ACOG Testing 30-65 [facility] 1 ThinPrep vial (Cervical cells) 01/08/2024 9:57 AM EDT 01/08/2024 Narrative [facility] 1 - 01/18/2024 2:05 PM EDT Performed at: 01 [facility] [address], [address], [place], [place] [id number] [place]: Fabio Day MD, Phone: [phone] Specimen Comment: Source.............Cervix Specimen Comment: LMP / Prev Treat...[id number] Specimen Comment: No. of containers..01 ThinPrep Vial us Dorothy Gandhi SALES AGENT [employer] LAB CYTOLOGY ORDERABLE S Final Result [facility] [...] 2:05 PM EDT Performed at: 02 - [address] [id number] [place]: Fabio Day MD, Phone: [phone] Performed at: 01 - [facility] [place] [address], [address], [place], [place] [id number] [place]: Fabio Day MD, Phone: [phone] Performed at: 03 - [facility] [address], [address], [place], [place] [id number] [place]der: Fabio Day MD, Phone: [phone] us Dorothy Gandhi SALES AGENT [employer] LAB CYTOLOGY ORDERABLE S Final Result [facility] 2 [facility] 3 * Hm Mammography (11/06/2022) Anatomical Region Laterality Modality Other Deann Martinez PA-C HEALTH MAINTENANCE Final Re sult from Last 3 Months or Most Recently Relevant to Health Maintenance Insurance [facility] [place] [address] [place] [address] [employer] [facility] [employer]
--- OUTSIDE RECORDS SUMMARY | 2025-03-14 08:46 | XMS_ITS | Encounter Summary ---
Author Organization [employer] Address [address] [place] [address] [place] [address] Care Team Providers Care Artisan Plasterer Name Role Phone Marguerite Garza Unavailable Unavailable Magi Humphries Unavailable Unavailable Inactive/Transferred Primary Care Provider Unava ilable Ghazala Peralta DO Primary Care Provider [phone] Inactive/Transferred Primary Care Provider Unava ilable Encounter [...] on filedocumented in this encounter Care Teams Artisan Plasterer Relationship Specialty Start Date End Date Inactive/Transferred PCP - General 02/02/24 02/18/24 Ghazala Peralta DO [address] [place] [address] PCP - General Family Medicine 02/19/24 06/21/24 Inactive/Transferred PCP - General 06/22/24 06/22/24 Marguerite Garza Community Health Worker 10/06/22 02/01/24 Magi Humphries Health Navigator Financial Counseling and Assistance Services 01/05/23 02/01/24 documented as of this encounter
== END 2025-03-14 09:02 | disposition home or self-care (01) ==
LOC: HO.HOS 08:26
PROVIDERS: PCP Nurse Practitioner Family; Visit Provider Orthopaedic Surgery
DX: R20.3 Hyperesthesia (principal); S68.626A Partial traumatic transphalangeal amputation of right little finger, initial encounter
CPT/HCPCS: 99213

== ENCOUNTER → 2025-03-14 08:25 | Outpatient (BNVA) | payer OTHER, SELFPAY | PROVIDERS: PCP Nurse Practitioner Family; Visit Provider Orthopaedic Surgery | DX: R20.3 Hyperesthesia (principal); S68.626D Partial traumatic transphalangeal amputation of right little finger, subsequent encounter | CPT/HCPCS: 99212 ==